=== PATIENT | male | born 1955 | race Caucasian/White ===

== ENCOUNTER 2018-05-18 14:46 | Inpatient (IN) | payer MEDICAID ==
[2018-05-18] MEDS ORDERED: Sodium Chloride 0.9% 1,000 ML IV ONE (14:51)
--- NOTE | 2018-05-18 14:59 | ED Physician Chart ---
ED Chief Complaint/HPI - Patient Information Date Seen:: 05/18/18 Time Seen:: 14:53 Chief Complaint:: Abdominal Pain History of Present Illness:: onset x one day of intermittent, crampy, epigastric pain with nausea; pt denies trauma, LOC, H/As, ALOC, AMS, S/T, neck pain, C/P, SOB, cough, A/V/D/C, fever, chills, or urinary s/s Allergies:: Allergies Allergy/AdvReac Type Severity Reaction Status Date / Time MDX No Known Allergies - Nka Allergy Verified 06/27/14 08:43 [No Known Allergies - Nka] Historian:: Patient, EMS Review:: Nurse's Note Reviewed, Old Chart Reviewed, EMS run form Reviewed ED Review of Systems - Review of Systems General/Constitutional: No fever, No chills, No weight loss, No weakness, No diaphoresis, No edema, No loss of appetite Skin: No skin lesions, No rash, No bruising Head: No headache, No light-headedness Eyes: No loss of vision, No pain, No diplopia ENT: No earache, No nasal drainage, No sore throat, No tinnitus Neck: No neck pain, No swelling, No thyromegaly, No stiffness, No mass noted Cardio Vascular: No chest pain, No palpitations, No PND, No orthopnea, No edema Pulmonary: No SOB, No cough, No sputum, No wheezing GI: Nausea, Vomiting, Diarrhea, Pain, No melena, No hematochezia, No constipation, No hematemesis G/U: No dysuria, No frequency, No hematuria, No nacturia Musculoskeletal: No bone or joint pain, No back pain, No muscle pain Endocrine: No polyuria, No polydipsia Psychiatric: Prior psych history, Depression, Anxiety, No suicidal ideation, No homicidal ideation, No auditory hallucination, No visual hallucination Hematopoietic: No bruising, No lymphadenopathy Allergic/Immuno: No urticaria, No angioedema Neurological: No syncope, No focal symptoms, No weakness, No paresthesia, No headache, No seizure, No dizziness, No confusion, No vertigo ED Past Medical History - Past Medical History Obtainable: Yes Past Medical History: HTN Family History: HTN Social History: Non Smoker, No Alcohol, No Drug Use, Single, Homeless Surgical History: None Psychiatricy History: Depression Medication: Reviewed Family Medical History - Family Member Sister History Unknown: Yes Ethnicity: Living Status: Hx Family Diabetes: Yes ED Physical Exam - Physical Examination General/Constitutional: Awake, Well-developed, well-nourished, Alert, No distress, GCS 15, Non-toxic appearing, Ambulatory Head: Atraumatic Eyes: Lids, conjuctiva normal, PERRL, EOMI Skin: Nl inspection, No rash, No skin lesions, No ecchymosis, Well hydrated, No lymphadenopathy ENMT: External ears, nose nl, TM canals nl, Nasal exam nl, Lips, teeth, gums nl , Oropharynx nl, Tonsils nl Neck: Nontender, Full ROM w/o pain, No JVD, No nuchal rigidity, No bruit, No mass, No stridor Respiratory: Nl effort/Exclusion, Clear to Auscultation, No Wheeze/Rhonchi/Rales Cardio Vascular: RRR, No murmur, gallop, rubs, NL S1 S2, Carotid/Femoral/Distal pulses equal bilaterally GI: No tenderness/rebounding/guarding, No organomegaly, No hernia, Normal BS's, Nondistended, No mass/bruits, No McBurney tenderness, Rectum exam nl : No CVA tenderness Extremities: No tenderness or effusion, Full ROM, normal strength in all extremities, No edema, Normal digits & nails Neuro/Psych: Alert/oriented, DTR's symmetric, Normal sensory exam, Normal motor strength, Judgement/insight normal, Mood normal, Normal gait, No focal deficits Misc: Normal back, No paraspinal tenderness ED Labs/Radiology/EKG Results - Lab Results Comments:: Amylase: 110 - Radiology Results Comments:: NAD - EKG Interpretations EKG Time:: 14:53 Rate & Rhythm: 71; NSR Comments:: non-specific st-t changes ED Septic Shock - . Is Septic Shock (SBP<90, OR Lactate>4 mmol\L) present?: No ED Reassessment (Disposition) - Reassessment Reassessment Condition:: Improved - Diagnosis Diagnosis:: Abdominal pain; Pancreatitis; Hyperbilirubinemia; Hyperlipidemia; Hypercholesterolemia; N/V; AGE Gastritis - Aftercare/Follow up Instructions Aftercare/Follow-Up Instructions:: Counseled pt regarding lab results/diagnosis & need follow up, Counseled pt & family regarding lab results/diagnosis & need follow up - Patient Disposition Discharge/Transfer:: Acute Care w/in this hosp Accepting Physician:: Dr. Bridges Time Called:: 1700 Time Responded:: 17:00 Admitted to:: Telemetry Spoke to:: Dr. Bridges Admitting Medical Physician:: Dr. Bridges Condition at Disposition:: Stable, Improved
[2018-05-18 15:13] LABS: EOSINOPHILE ABSOLUTE 0.1 Th/cmm (0.1-0.4); HEMOGLOBIN 16.3 gm/dL (12-16); MONOCYTE ABSOLUTE 0.5 Th/cmm (0.3-1.0)
[2018-05-18 15:16] LABS: % BASOPHILS 0.7 % (0.0-2.0); % EOSINOPHILS 1.5 % (0.0-5.0); % MONOCYTES 7.2 % (2.0-10.0); % NEUTROPHILS 64.6 % (40.0-80.0); BASOPHILE ABSOLUTE 0.1 Th/cumm (0-0.2); HEMATOCRIT 47.6 % (41.0-60); LYMPHOCYTE ABSOLUTE 1.9 Th/cmm (1.5-3.0); MEAN CELL VOLUME 93.4 fl (80-99); MEAN CORPUSCULAR HGB CONC 34.2 pg (28.0-36.0); MEAN PLATELET VOLUME 7.3 fl; NEUTROPHILE ABSOLUTE 4.8 Th/cmm (1.8-8.0); PLATELET COUNT 234 Th/cmm (150-400); RED BLOOD COUNT 5.09 Mil/cmm (4.30-5.70); RED CELL DISTRIBUTION WIDTH 12.5 % (11.5-20.0); WHITE BLOOD COUNT 7.4 Th/cmm (4.8-10.8)
[2018-05-18 15:22] LABS: INR 0.95 (0.5-1.4); PROTHROMBIN TIME (TEST) 9.9 SECONDS (9.5-11.5)
[2018-05-18 15:31] LABS: ALB/GLOB RATIO 1.5 (1.0-1.8); ALBUMIN 4.7 gm/dL (4.2-5.5); ALKALINE PHOSPHATASE 84 U/L (34-104); AMYLASE SERUM 110 U/L (29-103); ANION GAP 14.6 (7.0-16.0); BILIRUBIN,TOTAL 1.3 mg/dL (0.3-1.0); BUN - UREA NITROGEN 11 mg/dL (7-25); CALCIUM SERUM 10.1 mg/dL (8.6-10.3); CARBON DIOXIDE 23.1 mEq/L (21.0-31.0); CHLORIDE 104 mEq/L (98-107); CHOLESTEROL 222 mg/dL (<200); CREATININE - SERUM 0.8 mg/dL (0.7-1.3); CREATININE KINASE 86 U/L (30-223); GFR AFRICAN-AMERICAN > 60.0 ml/min (>90); GFR NON AFRICAN-AMERICAN > 60.0 ml/min; GLUCOSE 111 mg/dL (70-105); HDL -HIGH DENSITY LIPOPROTEIN 49 mg/dL (23-92); LIPASE 17 U/L (11-82); POTASSIUM SERUM 3.7 mEq/L (3.5-5.1); SGOT 14 U/L (13-39); SGPT/ALT 11 U/L (7-52); SODIUM SERUM 138 mEq/L (136-145); TOTAL PROTEIN,SERUM 7.8 gm/dL (6.0-8.3); TRIGLYCERIDES 186 mg/dL (<150)
[2018-05-18 17:43] LABS: URINE BILIRUBIN NEGATIVE (NEGATIVE); URINE BLOOD NEGATIVE (NEGATIVE); URINE GLUCOSE (UA) NEGATIVE (NEGATIVE); URINE KETONE NEGATIVE (NEGATIVE); URINE LEUKOCYTE ESTERASE NEGATIVE (NEGATIVE); URINE NITRATE NEGATIVE (NEGATIVE); URINE PROTEIN NEGATIVE (NEGATIVE); URINE SOURCE CLEAN C; URINE UROBILINOGEN 0.2 E.U./dL (0.2 - 1.0)
[2018-05-18 17:46] LABS: URINE CLARITY CLEAR (CLEAR); URINE COLOR YELLOW; URINE MICROSCOPIC INDICATED? NO
[2018-05-18] MEDS ORDERED: Morphine Sulfate 2 mg/mL 1mL Syr IV STA (18:46)
[2018-05-18] MEDS ORDERED: Morphine Sulfate 2 mg/mL 1mL Syr ONE (18:50)
[2018-05-18] MEDS: Morphine Sulfate 2 mg/mL 1mL Syr IVP PRN (23:48)
[2018-05-18] MEDS: D5-0.45NS 1,000 ML IV SCH (23:50)
[2018-05-19] MEDS ORDERED: Pneumococcal Vaccine 0.5 mL Vial IM ONE (03:32)
[2018-05-19] MEDS: Morphine Sulfate 2 mg/mL 1mL Syr IVP PRN ×2 (04:14→08:28)
[2018-05-19] MEDS: D5-0.45NS 1,000 ML IV SCH ×2 (06:50→16:00)
[2018-05-19] MEDS ORDERED: Fleet Enema 135 mL RC ONE (08:36)
--- NOTE | 2018-05-19 09:26 | General Progress Note ---
Subjective - Review of Systems Service Date: 05/19/18 Events since last encounter: consult dictated GI eval in progress Objective - Results Result Diagrams: 05/18/18 15:05 05/18/18 15:05 Recent Labs: Laboratory Last Values WBC 7.4 Th/cmm (4.8-10.8) 05/18/18 15:05 RBC 5.09 Mil/cmm (4.30-5.70) 05/18/18 15:05 Hgb 16.3 gm/dL (12-16) 05/18/18 15:05 Hct 47.6 % (41.0-60) 05/18/18 15:05 MCV 93.4 fl (80-99) 05/18/18 15:05 MCH 32.0 pg (26.0-30.0) H 05/18/18 15:05 MCHC Differential 34.2 pg (28.0-36.0) 05/18/18 15:05 RDW 12.5 % (11.5-20.0) 05/18/18 15:05 Plt Count 234 Th/cmm (150-400) 05/18/18 15:05 MPV 7.3 fl 05/18/18 15:05 Neutrophils % 64.6 % (40.0-80.0) 05/18/18 15:05 Lymphocytes % 26.0 % (20.0-50.0) 05/18/18 15:05 Monocytes % 7.2 % (2.0-10.0) 05/18/18 15:05 Eosinophils % 1.5 % (0.0-5.0) 05/18/18 15:05 Basophils % 0.7 % (0.0-2.0) 05/18/18 15:05 PT 9.9 SECONDS (9.5-11.5) 05/18/18 15:05 INR 0.95 (0.5-1.4) 05/18/18 15:05 Sodium 138 mEq/L (136-145) 05/18/18 15:05 Potassium 3.7 mEq/L (3.5-5.1) 05/18/18 15:05 Chloride 104 mEq/L (98-107) 05/18/18 15:05 Carbon Dioxide 23.1 mEq/L (21.0-31.0) 05/18/18 15:05 Anion Gap 14.6 (7.0-16.0) 05/18/18 15:05 BUN 11 mg/dL (7-25) 05/18/18 15:05 Creatinine 0.8 mg/dL (0.7-1.3) 05/18/18 15:05 Est GFR ( Amer) > 60.0 ml/min (>90) 05/18/18 15:05 Est GFR (Non-Af Amer) > 60.0 ml/min 05/18/18 15:05 BUN/Creatinine Ratio 13.8 05/18/18 15:05 Glucose 111 mg/dL (70-105) H 05/18/18 15:05 Calcium 10.1 mg/dL (8.6-10.3) 05/18/18 15:05 Total Bilirubin 1.3 mg/dL (0.3-1.0) H 05/18/18 15:05 AST 14 U/L (13-39) 05/18/18 15:05 ALT 11 U/L (7-52) 05/18/18 15:05 Alkaline Phosphatase 84 U/L (34-104) 05/18/18 15:05 Creatine Kinase 126 U/L (30-223) 05/19/18 03:15 Troponin I < 0.01 ng/mL (0.01-0.05) L 05/19/18 03:15 B-Natriuretic Peptide 16.0 pg/mL (5.0-100.0) 05/18/18 15:05 Total Protein 7.8 gm/dL (6.0-8.3) 05/18/18 15:05 Albumin 4.7 gm/dL (4.2-5.5) 05/18/18 15:05 Globulin 3.1 gm/dL 05/18/18 15:05 Albumin/Globulin Ratio 1.5 (1.0-1.8) 05/18/18 15:05 Triglycerides 186 mg/dL (<150) H 05/18/18 15:05 Cholesterol 222 mg/dL (<200) H 05/18/18 15:05 LDL Cholesterol Direct 148 mg/dL (75-193) 05/18/18 15:05 HDL Cholesterol 49 mg/dL (23-92) 05/18/18 15:05 Amylase 110 U/L (29-103) H 05/18/18 15:05 Lipase 17 U/L (11-82) 05/18/18 15:05 Urine Source CLEAN C 05/18/18 17:36 Urine Color YELLOW 05/18/18 17:36 Urine Clarity CLEAR (CLEAR) 05/18/18 17:36 Urine pH 8.0 (4.6 - 8.0) 05/18/18 17:36 Ur Specific Deary 1.010 (1.005-1.030) 05/18/18 17:36 Urine Protein NEGATIVE mg/dL (NEGATIVE) 05/18/18 17:36 Urine Glucose (UA) NEGATIVE mg/dL (NEGATIVE) 05/18/18 17:36 Urine Ketones NEGATIVE mg/dL (NEGATIVE) 05/18/18 17:36 Urine Blood NEGATIVE (NEGATIVE) 05/18/18 17:36 Urine Nitrate NEGATIVE (NEGATIVE) 05/18/18 17:36 Urine Bilirubin NEGATIVE (NEGATIVE) 05/18/18 17:36 Urine Urobilinogen 0.2 E.U./dL (0.2 - 1.0) 05/18/18 17:36 Ur Leukocyte Esterase NEGATIVE (NEGATIVE) 05/18/18 17:36 Ethyl Alcohol < 10 mg/dL (0-10) 05/19/18 03:15 - Physical Exam Vitals and I&O: Vital Signs Temp 97.1 F 05/19/18 07:40 Pulse 59 05/19/18 07:40 Resp 18 05/19/18 07:40 BP 143/82 05/19/18 07:40 Pulse Ox 96 05/19/18 07:40 Intake & Output 05/18/18 05/19/18 05/19/18 18:59 06:59 18:59 Intake Total 1999 Balance 1999 Weight (lbs) 58.967 kg 58.967 kg Intake: Intake, IV Amount 1999 Other: Weight Source Patient stated Estimated Active Medications: Current Medications Dextrose/Sodium Chloride (D5-0.45ns) 1,000 mls @ 100 mls/hr IV .Q10H FRANCISCO Stop: 07/17/18 19:29 Last Admin: 05/19/18 06:50 Dose: Not Given Morphine Sulfate (Morphine) 2 mg IVP Q4HR PRN PRN Reason: Pain (Severe) Stop: 07/17/18 19:18 Last Admin: 05/19/18 08:28 Dose: 2 mg Pantoprazole Sodium (Protonix) 40 mg IVP DAILY FRANCISCO Stop: 07/18/18 08:59 Last Admin: 05/19/18 08:27 Dose: 40 mg - Procedures Procedures: Procedures Procedure Code Date OTHER GROUP THERAPY 94.44 06/28/14
--- NOTE | 2018-05-19 10:13 | Diagnostic Imaging Report ---
KUB abdominal film HISTORY: Pain There is a nonspecific gas pattern of nondilated bowel. No free intraperitoneal air. IMPRESSION: Nonspecific bowel gas pattern with no acute radiographic abnormalities
--- NOTE | 2018-05-19 10:20 | History & Physical ---
ADMIT DATE: 05/19/2018 SURGICAL CONSULT REFERRING PHYSICIAN: Bismark Bridges M.D. REASON FOR CONSULTATION: Abdominal pain. Thank you for referring this patient to me. HISTORY OF PRESENT ILLNESS: This is a 62-year-old male who apparently is homeless and claims that he is having some psychiatric problems. He claims that he has been in four facilities and this is the fourth one, but he cant identify where he had been. He claims his pain is mid abdominal with some nausea. There is a claim of constipation, but apparently he had some diarrhea. Essentially, this patient's claims are difficult to corroborate as he does not seem to be consistent in his information. LABORATORY STUDIES: Now shows the CBC to be normal. The chemistry shows slight elevation of the bilirubin 1.2, triglycerides high at 186, and cholesterol 222. Amylase slightly elevated to 110. PHYSICAL EXAMINATION: GENERAL: The patient speaks [place], looks very depressed and apprehensive. ABDOMEN: Soft and flat. No mass. Tenderness is claimed on pressure in the mid abdomen. The patient has been seen by Dr. Reddy, GI neuropsychology medical consultant and tests have been ordered. The patient likewise need psych evaluation. We will follow with you. JOB# [id number] FAHEEM
--- NOTE | 2018-05-19 10:28 | Diagnostic Imaging Report ---
Portable chest x-ray History: Pain Allowing for portable technique the heart size is normal. No focal pulmonary parenchymal processes. No hilar or mediastinal abnormalities. Impression: No acute abnormalities.
--- NOTE | 2018-05-19 10:36 | Diagnostic Imaging Report ---
CT scan of the abdomen and pelvis without intravenous contrast History: Pain Total DLP equals 396 CTDI equals 8.1 Axial sections were obtained from the xiphoid process down to the pubic symphysis. The liver demonstrates a normal size and contour. No focal lesions are seen. The spleen appears normal. No abnormalities are seen in the region of the pancreas. The kidneys appear normal bilaterally. The exam of the pelvis demonstrates preservation of normal fat planes. No abnormal soft tissue masses. No abnormal fluid collections. There is rather marked enlargement of the prostate gland. Correlation with laboratory data (PSA) recommended. IMPRESSION: 1. No acute abnormalities 2. Markedly enlarged prostate gland. Correlation with laboratory data (PSA) recommended 3. Atherosclerotic vascular changes Impression: Negative examination
[2018-05-19] MEDS ORDERED: CITALOPRAM HYDROBROMIDE 20 MG PO SCH (11:45)
[2018-05-19] MEDS ORDERED: Non-Formulary Item 1 EA (Lurasidone Hcl [Latuda] 40 MG) PO SCH (11:45)
--- NOTE | 2018-05-19 12:51 | History & Physical ---
ADMIT DATE: 05/19/2018 PATIENT'S IDENTIFICATION: A 62-year-old male. CHIEF COMPLAINT: Abdominal pain. HISTORY OF PRESENT ILLNESS: A 62-year-old Palestinian male who resides on the streets, has a significant psychiatric history as well. According to him, he is going in and out of the hospital. The patient came to the Emergency Room because of the abdominal pain. The patient's abdominal pain is diffuse, associated with some nausea, but no vomiting, no weight loss. The patient stated that he needed to see the doctor, so he presented to the Emergency Room, the patient was extensively evaluated and I was advised to admit this patient considering the patient has significant pain. I was not informed the patient has a psych history as well. PAST MEDICAL HISTORY: Remarkable for questionable hypertension as well as psychiatric history. MEDICATIONS AT HOME: The patient was taking atenolol, Celexa, and Latuda. ALLERGIES: The patient is allergic to not any medication. SOCIAL HISTORY: The patient lives on the [address]. The patient does not smoke, does not drink. FAMILY MEDICAL HISTORY: Unknown. Negative for diabetes, hypertension, kidney disease, liver disease. REVIEW OF SYSTEMS: The patient continues to feel pain on the abdomen along with some multiple nonspecific symptoms, which include abdominal. No fever, chills, cough, chest pain, headache, diplopia, tingling, numbness. All the review of systems I told asking, which all he said yes. PHYSICAL EXAMINATION: GENERAL: The patient is alert, awake, lying in the bed without any acute distress. VITAL SIGNS: Temperature 97.1, pulse 60, respiratory rate 18, blood pressure 143/82. HEENT: Normocephalic, atraumatic. Extraocular muscles are intact. Tongue was pink and coated. Poor dentition noted. NECK: Supple, no JVD. No hepatojugular reflex. No lymphadenopathy, thyromegaly, or carotid bruit. HEART: Both heart sounds are regular. No S3, no S4. CHEST AND LUNGS: Equal in expansion, no expiratory wheezing. ABDOMEN: Soft. Diffuse guarding noted, but no tenderness. Bowel sounds are present. EXTREMITIES: No edema, no cyanosis. NEUROLOGIC: Nonfocal. AVAILABLE DIAGNOSTIC DATA: A CT scan of the abdomen and pelvis was done, which remarkable for no acute abnormality except markedly enlarged prostate gland noted with atherosclerotic vascular changes. The patient's chemistry panel normal. CBC is normal. Total bilirubin 1.3. Troponin was negative. Creatinine kinase was 452, cholesterol was 222. Urinalysis is negative. Alcohol level less than 10. CLINICAL IMPRESSION: 1. Diffuse abdominal pain, etiology needs to determine suspect the patient may be ill etiologies from psychiatric illness. Though, the patient has atherosclerotic disease changes on CAT scan, ischemia is always the possibilities. 2. Psychotic disorder. 3. Questionable hypertension. PLAN: In the view of his abdominal pain, the patient will be admitted. We will keep n.p.o., IV fluid, IV antibiotic. GI and General Surgery consultation and resume psych medication as well and we will follow psychiatrist recommendations as well. Care plan reviewed and discussed with the patient. [facility]# [id number]
--- NOTE | 2018-05-19 13:12 | Diagnostic Imaging Report ---
Abdominal ultrasound HISTORY: Pain The liver exhibits a homogeneous parenchyma. No focal lesions. No discrete intraluminal abnormality seen within the gallbladder. No definite calculi. No biliary dilatation. The pancreas cannot be seen due to bowel gas. An approximate 2.5 cm sonolucent lesion is noted within the upper pole of the right kidney consistent with a cyst. No hydronephrosis. The left kidney appears normal. Spleen is normal in size. A subcentimeter nodular density is noted adjacent to the spleen probably related to an accessory spleen. No other significant retroperitoneal or intra-abdominal abnormalities. IMPRESSION: 1. Right renal cyst 2. No other significant abnormalities (Pancreas cannot be seen due to bowel gas).
--- NOTE | 2018-05-19 19:29 | Consultation ---
DATE OF CONSULTATION: 05/19/2018 INPATIENT GASTROINTESTINAL CONSULTATION CONSULTING PHYSICIAN: Dr. Bridges. REASON FOR CONSULTATION: Abdominal pain. HISTORY OF PRESENT ILLNESS: The patient is a 62-year-old male with history of hypertension and anxiety, comes into the hospital with 2 days of nausea, vomiting and abdominal pain. The patient reports that he is currently homeless and he has began to have severe anxiety several days ago. He thinks that his anxiety is causing him to have issues of abdominal pain, but also back pain and pain in his upper and lower extremities. He thinks that he has vomited several times since the onset of this pain and he has not been tolerating much by mouth. At the current time, the patient feels very anxious, scared, and complains about total body pain more than any specific area. In the ER, he had an evaluation with CT scan that noted an enlarged prostate, but otherwise no acute findings as per the preliminary read. His laboratory evaluation is essentially normal. PAST MEDICAL HISTORY: Anxiety, hypertension. PAST SURGICAL HISTORY: The patient denies any abdominal surgeries. FAMILY HISTORY: Noncontributory. SOCIAL HISTORY: The patient denies using illicit drugs, but he is homeless. ALLERGIES: No known drug allergies. REVIEW OF SYSTEMS: A 12-point review of systems was performed and the patient is negative other than the pertinent positives are mentioned in the history of present illness. CURRENT MEDICATIONS: Include morphine as needed, Protonix daily. PHYSICAL EXAMINATION: VITAL SIGNS: Blood pressure is 143/82, pulse 59 beats per minute, respiratory rate 97.1, oxygenation 96%. GENERAL: The patient is lying flat in bed. He appears highly anxious and is alert and oriented x 3. HEAD, EARS, EYES, NOSE AND THROAT: Normocephalic, atraumatic appearing head. Pupils are equal and reactive to light. Extraocular muscles are intact. Moist mucous membranes. NECK: Supple. No JVD or thyromegaly or lymphadenopathy. CHEST: Clear to auscultation bilaterally. CARDIOVASCULAR: S1, S2 present. Regular rate and rhythm. ABDOMEN: Soft. There is no tenderness to palpation in any specific area, although there is some generalized pain wherever I pressed down deeply. No guarding, no rebound. EXTREMITIES: No pitting edema. Pulses are not present. SKIN: There are no obvious jaundice. LABORATORY DATA: White blood cell count is 7.4, hemoglobin 16.3, platelet count 234. INR 0.9. Sodium 138, BUN 11, creatinine 0.8, total bilirubin 1.3, AST 14, ALT 11, lipase 17. IMAGING: A preliminary CT scan read shows no acute abnormalities and there is no enlarged prostate. IMPRESSION: This is a 62-year-old male, who is homeless with history of hypertension and anxiety, comes into the hospital with generalized body pain, but specifically complains about abdominal pain and back pain. 1. Abdominal pain. 2. Nausea and vomiting. 3. Back pain. 4. High anxiety level. DISCUSSION: At this point, the patient's clinical symptoms are very vague and the differential is broad including such entities as viral or bacterial gastroenteritis or more of a somatoform disorder such as anxiety related abdominal pain. His laboratories and CT scan are essentially normal, which leads against any sort of pancreatitis or colitis that might be causing this. The patient may be suffering some acid reflux or esophagitis and these issues should be treated with the Protonix he is receiving. Peptic ulcer disease is another possibility, although I would have expected the patient to have exhibited an anemia or melena in the setting. Furthermore, we can consider such entities as constipation or obstipation related pain as the patient reports he has not had a bowel movement in several days and we will get a KUB to further assess this. Total bilirubin is mildly elevated, which is likely Gilbert syndrome, but we can get an ultrasound to look at the gallbladder specifically and ensure that there is no evidence of choledocholithiasis. RECOMMENDATIONS: 1. We will order a fleet enema as the patient reports he has not had a bowel movement in several days. 2. We will get a KUB. 3. We will order an abdominal ultrasound as stated above. 4. The patient can be put back on a low fat diet after the ultrasound. 5. Continue the Protonix. 6. Consider psych consultation given the patient is complaining mostly about his anxiety more than other things. 7. If the patient's pain does not get any better with conservative treatment, we can consider endoscopy, although there is no current indication for this. We will continue to follow. Thank you for allowing us to participate in his care. Please call if any further questions. JOB# [id number]
[2018-05-19 19:55] LABS: AMPHETAMINE URINE NEGATIVE (NEGATIVE); BARBITURATES URINE NEGATIVE (NEGATIVE); BENZODIAZEPINES QUAL URINE NEGATIVE (NEGATIVE); CANNABINOID THC NEGATIVE (NEGATIVE); COCAINE METABOLITE QUAL URINE NEGATIVE (NEGATIVE); METHADONE URINE NEGATIVE (NEGATIVE); METHAMPHETAMINES QUAL URINE NEGATIVE (NEGATIVE); OPIATES (MORPHINE) QUAL. URINE POSITIVE (NEGATIVE); PHENCYCLIDINE (PCP) URINE NEGATIVE (NEGATIVE); TRICYCLICS (TCA) QUAL. URINE NEGATIVE (NEGATIVE)
[2018-05-20] MEDS: D5-0.45NS 1,000 ML IV SCH ×2 (03:00→19:03)
--- NOTE | 2018-05-20 07:33 | Consultation ---
DATE OF CONSULTATION: 05/20/2018 PSYCHIATRIC CONSULT THE PATIENT'S AGE: 62. SEX: Male. PHYSICIAN: Dr. Westbrook. CHIEF COMPLAINT: Depression and hallucinations. HISTORY OF PRESENT ILLNESS: The patient is a 62-year-old male, who was admitted to the hospital because of abdominal pain. The patient has been anxious and has been depressed. The patient also has been isolative. The patient has a history of multiple psychiatric hospitalizations for treatment of what seems to be a schizoaffective disorder. The patient said that currently he does not hear voices or see things, but he seems to be suspicious and paranoid. The patient also is homeless and has no place to live. The patient is taking Celexa at this time. PAST PSYCHIATRIC HISTORY: The patient has history of multiple psychiatric hospitalizations for treatment of what seems to be schizoaffective disorder. PAST MEDICAL HISTORY: The patient is admitted with abdominal pain. SOCIAL HISTORY: The patient said that he has 3 children. He is not . He denies alcohol or drug use. ALLERGIES: No known allergies. MENTAL STATUS EXAM: The patient appears slightly older than his stated age. Disheveled. Anxious. Sad affect. In a depressed mood. Thought processes mainly goal directed. The patient denies auditory or visual hallucinations or delusions, but seems to be paranoid. The patient denies any suicidal or homicidal ideations. The patient is alert and oriented to time, place, person, and situation. Intact immediate, recent and remote memories. Poor insight and poor judgment. He seems to be of average intelligence based on his verbal ability. ASSESSMENT: PRIMARY DIAGNOSIS: Schizoaffective disorder, depressed episode, with psychotic features. TREATMENT PLAN: We will monitor his behavior and his condition. We will increase Celexa to 40 mg every day. Also, the patient is not suicidal or homicidal, and he can be treated in lower level of care and he can be discharged from the hospital. Thanks to Dr. Bridges and we will follow up with you. JOB# [id number]
--- NOTE | 2018-05-20 09:32 | GI Progress Note ---
Subjective - Review of Systems Service Date: 05/20/18 Subjective: No longer having abd pain, reports he had a BM Objective - Results Result Diagrams: 05/18/18 15:05 05/18/18 15:05 Recent Labs: Laboratory Last Values WBC 7.4 Th/cmm (4.8-10.8) 05/18/18 15:05 RBC 5.09 Mil/cmm (4.30-5.70) 05/18/18 15:05 Hgb 16.3 gm/dL (12-16) 05/18/18 15:05 Hct 47.6 % (41.0-60) 05/18/18 15:05 MCV 93.4 fl (80-99) 05/18/18 15:05 MCH 32.0 pg (26.0-30.0) H 05/18/18 15:05 MCHC Differential 34.2 pg (28.0-36.0) 05/18/18 15:05 RDW 12.5 % (11.5-20.0) 05/18/18 15:05 Plt Count 234 Th/cmm (150-400) 05/18/18 15:05 MPV 7.3 fl 05/18/18 15:05 Neutrophils % 64.6 % (40.0-80.0) 05/18/18 15:05 Lymphocytes % 26.0 % (20.0-50.0) 05/18/18 15:05 Monocytes % 7.2 % (2.0-10.0) 05/18/18 15:05 Eosinophils % 1.5 % (0.0-5.0) 05/18/18 15:05 Basophils % 0.7 % (0.0-2.0) 05/18/18 15:05 PT 9.9 SECONDS (9.5-11.5) 05/18/18 15:05 INR 0.95 (0.5-1.4) 05/18/18 15:05 Sodium 138 mEq/L (136-145) 05/18/18 15:05 Potassium 3.7 mEq/L (3.5-5.1) 05/18/18 15:05 Chloride 104 mEq/L (98-107) 05/18/18 15:05 Carbon Dioxide 23.1 mEq/L (21.0-31.0) 05/18/18 15:05 Anion Gap 14.6 (7.0-16.0) 05/18/18 15:05 BUN 11 mg/dL (7-25) 05/18/18 15:05 Creatinine 0.8 mg/dL (0.7-1.3) 05/18/18 15:05 Est GFR ( Amer) > 60.0 ml/min (>90) 05/18/18 15:05 Est GFR (Non-Af Amer) > 60.0 ml/min 05/18/18 15:05 BUN/Creatinine Ratio 13.8 05/18/18 15:05 Glucose 111 mg/dL (70-105) H 05/18/18 15:05 Calcium 10.1 mg/dL (8.6-10.3) 05/18/18 15:05 Total Bilirubin 1.3 mg/dL (0.3-1.0) H 05/18/18 15:05 AST 14 U/L (13-39) 05/18/18 15:05 ALT 11 U/L (7-52) 05/18/18 15:05 Alkaline Phosphatase 84 U/L (34-104) 05/18/18 15:05 Creatine Kinase 1182 U/L (30-223) H 05/19/18 19:20 CK-MB (CK-2) 4.7 ng/mL (0.6-6.3) 05/19/18 19:20 Troponin I 0.01 ng/mL (0.01-0.05) 05/19/18 19:20 B-Natriuretic Peptide 16.0 pg/mL (5.0-100.0) 05/18/18 15:05 Total Protein 7.8 gm/dL (6.0-8.3) 05/18/18 15:05 Albumin 4.7 gm/dL (4.2-5.5) 05/18/18 15:05 Globulin 3.1 gm/dL 05/18/18 15:05 Albumin/Globulin Ratio 1.5 (1.0-1.8) 05/18/18 15:05 Triglycerides 186 mg/dL (<150) H 05/18/18 15:05 Cholesterol 222 mg/dL (<200) H 05/18/18 15:05 LDL Cholesterol Direct 148 mg/dL (75-193) 05/18/18 15:05 HDL Cholesterol 49 mg/dL (23-92) 05/18/18 15:05 Amylase 110 U/L (29-103) H 05/18/18 15:05 Lipase 17 U/L (11-82) 05/18/18 15:05 Urine Source CLEAN C 05/18/18 17:36 Urine Color YELLOW 05/18/18 17:36 Urine Clarity CLEAR (CLEAR) 05/18/18 17:36 Urine pH 8.0 (4.6 - 8.0) 05/18/18 17:36 Ur Specific [place] 1.010 (1.005-1.030) 05/18/18 17:36 Urine Protein NEGATIVE mg/dL (NEGATIVE) 05/18/18 17:36 Urine Glucose (UA) NEGATIVE mg/dL (NEGATIVE) 05/18/18 17:36 Urine Ketones NEGATIVE mg/dL (NEGATIVE) 05/18/18 17:36 Urine Blood NEGATIVE (NEGATIVE) 05/18/18 17:36 Urine Nitrate NEGATIVE (NEGATIVE) 05/18/18 17:36 Urine Bilirubin NEGATIVE (NEGATIVE) 05/18/18 17:36 Urine Urobilinogen 0.2 E.U./dL (0.2 - 1.0) 05/18/18 17:36 Ur Leukocyte Esterase NEGATIVE (NEGATIVE) 05/18/18 17:36 Urine Opiates Screen POSITIVE (NEGATIVE) H 05/19/18 19:20 Urine Methadone Screen NEGATIVE (NEGATIVE) 05/19/18 19:20 Ur Barbiturates Screen NEGATIVE (NEGATIVE) 05/19/18 19:20 Ur Tricyclics Screen NEGATIVE (NEGATIVE) 05/19/18 19:20 Ur Phencyclidine Scrn NEGATIVE (NEGATIVE) 05/19/18 19:20 Amphetamines Screen NEGATIVE (NEGATIVE) 05/19/18 19:20 U Methamphetamines Scrn NEGATIVE (NEGATIVE) 05/19/18 19:20 U Benzodiazepines Scrn NEGATIVE (NEGATIVE) 05/19/18 19:20 U Cocaine Metab Screen NEGATIVE (NEGATIVE) 05/19/18 19:20 U Cannabinoids Screen NEGATIVE (NEGATIVE) 05/19/18 19:20 Ethyl Alcohol < 10 mg/dL (0-10) 05/19/18 03:15 - Physical Exam Vitals and I&O: Vital Signs Temp 98.4 F 05/20/18 04:00 Pulse 78 05/20/18 08:41 Resp 18 05/20/18 04:00 BP 136/68 05/20/18 08:41 Pulse Ox 98 05/20/18 04:00 Intake & Output 05/19/18 05/20/18 05/20/18 18:59 06:59 18:59 Intake Total 1000 1000 Balance 1000 1000 Weight (lbs) 58.967 kg Intake: Intake, IV Amount 1000 1000 D5-0.45NS 1,000 ml @ 100 1000 1000 mls/hr IV .Q10H [facility] Rx#: [id number] Other: Weight Source Estimated Active Medications: Current Medications Atenolol (Tenormin) 25 mg PO DAILY [facility] Stop: 07/19/18 08:59 Last Admin: 05/20/18 08:41 Dose: 25 mg Citalopram Hydrobromide (Celexa) 40 mg PO DAILY [facility] Stop: 07/19/18 08:59 Dextrose/Sodium Chloride (D5-0.45ns) 1,000 mls @ 100 mls/hr IV .Q10H [facility] Stop: 07/17/18 19:29 Last Admin: 05/20/18 03:00 Dose: 100 mls/hr Miscellaneous (Lurasidone Hcl [Latuda]) 40 mg PO DAILY [facility] Stop: 07/18/18 11:44 Morphine Sulfate (Morphine) 2 mg IVP Q4HR PRN PRN Reason: Pain (Severe) Stop: 07/17/18 19:18 Last Admin: 05/19/18 08:28 Dose: 2 mg Pantoprazole Sodium (Protonix) 40 mg IVP DAILY [facility] Stop: 07/18/18 08:59 Last Admin: 05/19/18 08:27 Dose: 40 mg General: Alert Neck: Supple Cardiovascular: Regular rate Abdomen: Bowel sounds, Soft, no Tender, no Hepatomegaly, no Splenomegaly, no Distended, no Rebound Skin: no Rash - Procedures Procedures: Procedures Procedure Code Date OTHER GROUP THERAPY 94.44 06/28/14 Assessment/Plan - Assessment Assessment: # Schizophrenia # Abd pain # Nausea Pt's GI symptoms are resolved at this point, and may have had a large component of anxiety as the root cause. The patient is very fearful, and does not want to discuss the prospect of endoscopy. He is less anxious today, and his pain is much better and he has no nausea. Plan: - diet as tolerated - psych f/u - bowel regimen if the pt will allow it - if pain returns, and pt will allow it, we can discuss performing endoscopy GI to see this patient intermittently, please call with any questions
--- NOTE | 2018-05-20 12:17 | General Progress Note ---
Subjective - Review of Systems Service Date: 05/20/18 Events since last encounter: labs normal denies pain will sign off Objective - Results Result Diagrams: 05/18/18 15:05 05/18/18 15:05 Recent Labs: Laboratory Last Values WBC 7.4 Th/cmm (4.8-10.8) 05/18/18 15:05 RBC 5.09 Mil/cmm (4.30-5.70) 05/18/18 15:05 Hgb 16.3 gm/dL (12-16) 05/18/18 15:05 Hct 47.6 % (41.0-60) 05/18/18 15:05 MCV 93.4 fl (80-99) 05/18/18 15:05 MCH 32.0 pg (26.0-30.0) H 05/18/18 15:05 MCHC Differential 34.2 pg (28.0-36.0) 05/18/18 15:05 RDW 12.5 % (11.5-20.0) 05/18/18 15:05 Plt Count 234 Th/cmm (150-400) 05/18/18 15:05 MPV 7.3 fl 05/18/18 15:05 Neutrophils % 64.6 % (40.0-80.0) 05/18/18 15:05 Lymphocytes % 26.0 % (20.0-50.0) 05/18/18 15:05 Monocytes % 7.2 % (2.0-10.0) 05/18/18 15:05 Eosinophils % 1.5 % (0.0-5.0) 05/18/18 15:05 Basophils % 0.7 % (0.0-2.0) 05/18/18 15:05 PT 9.9 SECONDS (9.5-11.5) 05/18/18 15:05 INR 0.95 (0.5-1.4) 05/18/18 15:05 Sodium 138 mEq/L (136-145) 05/18/18 15:05 Potassium 3.7 mEq/L (3.5-5.1) 05/18/18 15:05 Chloride 104 mEq/L (98-107) 05/18/18 15:05 Carbon Dioxide 23.1 mEq/L (21.0-31.0) 05/18/18 15:05 Anion Gap 14.6 (7.0-16.0) 05/18/18 15:05 BUN 11 mg/dL (7-25) 05/18/18 15:05 Creatinine 0.8 mg/dL (0.7-1.3) 05/18/18 15:05 Est GFR ( Amer) > 60.0 ml/min (>90) 05/18/18 15:05 Est GFR (Non-Af Amer) > 60.0 ml/min 05/18/18 15:05 BUN/Creatinine Ratio 13.8 05/18/18 15:05 Glucose 111 mg/dL (70-105) H 05/18/18 15:05 Calcium 10.1 mg/dL (8.6-10.3) 05/18/18 15:05 Total Bilirubin 1.3 mg/dL (0.3-1.0) H 05/18/18 15:05 AST 14 U/L (13-39) 05/18/18 15:05 ALT 11 U/L (7-52) 05/18/18 15:05 Alkaline Phosphatase 84 U/L (34-104) 05/18/18 15:05 Creatine Kinase 1182 U/L (30-223) H 05/19/18 19:20 CK-MB (CK-2) 4.7 ng/mL (0.6-6.3) 05/19/18 19:20 Troponin I 0.01 ng/mL (0.01-0.05) 05/19/18 19:20 B-Natriuretic Peptide 16.0 pg/mL (5.0-100.0) 05/18/18 15:05 Total Protein 7.8 gm/dL (6.0-8.3) 05/18/18 15:05 Albumin 4.7 gm/dL (4.2-5.5) 05/18/18 15:05 Globulin 3.1 gm/dL 05/18/18 15:05 Albumin/Globulin Ratio 1.5 (1.0-1.8) 05/18/18 15:05 Triglycerides 186 mg/dL (<150) H 05/18/18 15:05 Cholesterol 222 mg/dL (<200) H 05/18/18 15:05 LDL Cholesterol Direct 148 mg/dL (75-193) 05/18/18 15:05 HDL Cholesterol 49 mg/dL (23-92) 05/18/18 15:05 Amylase 110 U/L (29-103) H 05/18/18 15:05 Lipase 17 U/L (11-82) 05/18/18 15:05 Urine Source CLEAN C 05/18/18 17:36 Urine Color YELLOW 05/18/18 17:36 Urine Clarity CLEAR (CLEAR) 05/18/18 17:36 Urine pH 8.0 (4.6 - 8.0) 05/18/18 17:36 Ur Specific [place] 1.010 (1.005-1.030) 05/18/18 17:36 Urine Protein NEGATIVE mg/dL (NEGATIVE) 05/18/18 17:36 Urine Glucose (UA) NEGATIVE mg/dL (NEGATIVE) 05/18/18 17:36 Urine Ketones NEGATIVE mg/dL (NEGATIVE) 05/18/18 17:36 Urine Blood NEGATIVE (NEGATIVE) 05/18/18 17:36 Urine Nitrate NEGATIVE (NEGATIVE) 05/18/18 17:36 Urine Bilirubin NEGATIVE (NEGATIVE) 05/18/18 17:36 Urine Urobilinogen 0.2 E.U./dL (0.2 - 1.0) 05/18/18 17:36 Ur Leukocyte Esterase NEGATIVE (NEGATIVE) 05/18/18 17:36 Urine Opiates Screen POSITIVE (NEGATIVE) H 05/19/18 19:20 Urine Methadone Screen NEGATIVE (NEGATIVE) 05/19/18 19:20 Ur Barbiturates Screen NEGATIVE (NEGATIVE) 05/19/18 19:20 Ur Tricyclics Screen NEGATIVE (NEGATIVE) 05/19/18 19:20 Ur Phencyclidine Scrn NEGATIVE (NEGATIVE) 05/19/18 19:20 Amphetamines Screen NEGATIVE (NEGATIVE) 05/19/18 19:20 U Methamphetamines Scrn NEGATIVE (NEGATIVE) 05/19/18 19:20 U Benzodiazepines Scrn NEGATIVE (NEGATIVE) 05/19/18 19:20 U Cocaine Metab Screen NEGATIVE (NEGATIVE) 05/19/18 19:20 U Cannabinoids Screen NEGATIVE (NEGATIVE) 05/19/18 19:20 Ethyl Alcohol < 10 mg/dL (0-10) 05/19/18 03:15 - Physical Exam Vitals and I&O: Vital Signs Temp 98.4 F 05/20/18 04:00 Pulse 78 05/20/18 08:41 Resp 20 05/20/18 08:00 BP 136/68 05/20/18 08:41 Pulse Ox 98 05/20/18 04:00 Intake & Output 05/19/18 05/20/18 05/20/18 18:59 06:59 18:59 Intake Total 1000 1000 Balance 1000 1000 Weight (lbs) 58.967 kg Intake: Intake, IV Amount 1000 1000 D5-0.45NS 1,000 ml @ 100 1000 1000 mls/hr IV .Q10H [facility] Rx#: [id number] Other: Weight Source Estimated Active Medications: Current Medications Atenolol (Tenormin) 25 mg PO DAILY [facility] Stop: 07/19/18 08:59 Last Admin: 05/20/18 08:41 Dose: 25 mg Citalopram Hydrobromide (Celexa) 40 mg PO DAILY [facility] Stop: 07/19/18 08:59 Last Admin: 05/20/18 09:00 Dose: 40 mg Dextrose/Sodium Chloride (D5-0.45ns) 1,000 mls @ 100 mls/hr IV .Q10H [facility] Stop: 07/17/18 19:29 Last Admin: 05/20/18 03:00 Dose: 100 mls/hr Miscellaneous (Lurasidone Hcl [Latuda]) 40 mg PO DAILY [facility] Stop: 07/18/18 11:44 Morphine Sulfate (Morphine) 2 mg IVP Q4HR PRN PRN Reason: Pain (Severe) Stop: 07/17/18 19:18 Last Admin: 05/19/18 08:28 Dose: 2 mg Pantoprazole Sodium (Protonix) 40 mg IVP DAILY [facility] Stop: 07/18/18 08:59 Last Admin: 05/20/18 09:00 Dose: 40 mg General: Alert Neck: Supple Cardiovascular: Regular rate Abdomen: Bowel sounds, Soft, no Tender, no Hepatomegaly, no Splenomegaly, no Distended, no Rebound Skin: no Rash - Procedures Procedures: Procedures Procedure Code Date OTHER GROUP THERAPY 94.44 06/28/14
[2018-05-21] MEDS: D5-0.45NS 1,000 ML IV SCH ×2 (03:39→09:04)
--- NOTE | 2018-05-21 09:28 | Progress Notes ---
DATE: IDENTIFICATION: A 62-year-old male, patient seen and examined. The patient has no new complaint. The patient is seen by food production associate as well as the psychiatrist. According to the patient, psychologist and psychiatrist as well as the patient's family suggested to the psych consult. According to social welfare clerk, Psych consult has been requested from Dr. Westbrook as well. The patient currently denies any chest pain, shortness of breath or palpitation. His abdominal pain is better. PHYSICAL EXAMINATION: VITAL SIGNS: See nurse's note. HEENT: No facial asymmetry. NECK: Supple, no JVD. HEART: Regular. CHEST AND LUNGS: Equal in expansion. No expiratory wheezing. ABDOMEN: Soft. No guarding. No rigidity. Bowel sounds present. No palpable mass. EXTREMITIES: No edema. CLINICAL IMPRESSION: 1. Abdominal pain with negative workup. 2. Most likely Psychotic disorder exacerbation. 3. Hypertension. PLAN: Followup and follow the recommendations. Start feeding the patient with p.o. diet, monitor his vital signs and transfer him to the med-surg level. Continue to follow [employer] operations consultant recommendations as well. Care plan has been reviewed and discussed with the staff. JOB# [id number]
[2018-05-21] MEDS ORDERED: Haloperidol Lactate 5 mg/mL 1mL Vial IM ONE (14:42)
--- NOTE | 2018-05-21 20:06 | Progress Notes ---
DATE: 05/21/2018 SUBJECTIVE: The patient seen and examined. The patient has more psych issues than medical issue at this time. The patient has been seen by psychiatrist. The patient thinks he is depressed. He has no plan to kill himself. PHYSICAL EXAMINATION: VITAL SIGNS: Temperature 98, pulse 77, respiratory rate 18, blood pressure 137/73. HEENT: Poor dentition. NECK: Supple. HEART: Regular. CHEST AND LUNG: Equal in expansion, no expiratory wheezing. ABDOMEN: Soft. EXTREMITIES: No edema. NEUROLOGIC: Nonfocal. CLINICAL IMPRESSION: 1. Elevated CPK secondary to rhabdomyolysis. 2. Psychotic disorder exacerbation. 3. Opiate screen positive on urine. PLAN: 1. IV fluid. 2. Antihypertensive medicine on p.r.n. 3. Psych medication and psych followup. 4. Symptoms management. 5. Care plan reviewed and discussed. JOB# [id number]
--- NOTE | 2018-05-22 00:12 | Progress Notes ---
DATE: 05/21/2018 SUBJECTIVE: Case was discussed with staff of the patient, reviewed records. The patient was seen by Dr. Westbrook because of depression and today he was "seen on emergency basis." The patient was suicidal. He was saying that he would like to harm himself. His family was there and they said that he has been hospitalized many times in the last month and that they keep sending him back home and he is still very depressed. He is currently on Celexa 40 mg a day and I will be adding Abilify 5 mg a day. We have to give him emergency medication. He was very agitated and anxious. We are going to also put him on a hold to transfer to a psych unit when medically cleared and think he will be kept on 1:1 suicide precautions. Side effects discussed. Thank you very much for allowing me to participate in the care of this most interesting gentleman. JOB# [id number]
[2018-05-22 12:38] LABS: % BASOPHILS 0.8 % (0.0-2.0); % LYMPHOCYTES 31.2 % (20.0-50.0); % MONOCYTES 10.1 % (2.0-10.0); % NEUTROPHILS 56.9 % (40.0-80.0); BASOPHILE ABSOLUTE 0.1 Th/cumm (0-0.2); EOSINOPHILE ABSOLUTE 0.1 Th/cmm (0.1-0.4); HEMATOCRIT 47.3 % (41.0-60); HEMOGLOBIN 15.9 gm/dL (12-16); LYMPHOCYTE ABSOLUTE 2.5 Th/cmm (1.5-3.0); MEAN CELL VOLUME 93.7 fl (80-99); MEAN CORPUSCULAR HEMOGLOBIN 31.5 pg (26.0-30.0); MEAN CORPUSCULAR HGB CONC 33.6 pg (28.0-36.0); MEAN PLATELET VOLUME 7.7 fl; MONOCYTE ABSOLUTE 0.8 Th/cmm (0.3-1.0); NEUTROPHILE ABSOLUTE 4.4 Th/cmm (1.8-8.0); PLATELET COUNT 230 Th/cmm (150-400); RED BLOOD COUNT 5.05 Mil/cmm (4.30-5.70); RED CELL DISTRIBUTION WIDTH 12.6 % (11.5-20.0); WHITE BLOOD COUNT 7.9 Th/cmm (4.8-10.8)
[2018-05-22 12:48] LABS: ALB/GLOB RATIO 1.6 (1.0-1.8); ALBUMIN 4.2 gm/dL (4.2-5.5); ALKALINE PHOSPHATASE 76 U/L (34-104); ANION GAP 11.6 (7.0-16.0); BILIRUBIN,TOTAL 1.3 mg/dL (0.3-1.0); BUN - UREA NITROGEN 18 mg/dL (7-25); CALCIUM SERUM 9.4 mg/dL (8.6-10.3); CARBON DIOXIDE 25.5 mEq/L (21.0-31.0); CHLORIDE 103 mEq/L (98-107); CREATININE - SERUM 0.9 mg/dL (0.7-1.3); CREATININE KINASE 400 U/L (30-223); GFR AFRICAN-AMERICAN > 60.0 ml/min (>90); GFR NON AFRICAN-AMERICAN > 60.0 ml/min; GLUCOSE 97 mg/dL (70-105); POTASSIUM SERUM 4.1 mEq/L (3.5-5.1); SGOT 22 U/L (13-39); SGPT/ALT 16 U/L (7-52); SODIUM SERUM 136 mEq/L (136-145); TOTAL PROTEIN,SERUM 6.8 gm/dL (6.0-8.3)
--- NOTE | 2018-05-22 15:50 | Progress Notes ---
DATE: 05/22/2018 IDENTIFICATION: A 62-year-old male. SUBJECTIVE: The patient is currently on Abilify. The patient did require symptomatic therapy with Ativan. The patient is currently sleeping comfortably. PHYSICAL EXAMINATION: VITAL SIGNS: Temperature 97.2, pulse 64, respiratory rate 18, blood pressure 140/62. HEENT: No facial asymmetry. NECK: Supple, no JVD. HEART: Regular. CHEST AND LUNGS: Equal in expansion, expiratory wheezing. ABDOMEN: Soft. EXTREMITIES: No edema. CLINICAL IMPRESSION: 1. Psychotic disorder exacerbation. 2. Elevated CPK on 05/19/2018. 3. Hypertension. 4. Abdominal pain, resolved. PLAN: Check CPK, CBC, CMP today. Continue IV fluids. Psych medication. Monitor blood pressure and behavior. Follow oim consultant's recommendations. Care plan reviewed and discussed. JOB# [id number]
--- NOTE | 2018-05-22 22:17 | Progress Notes ---
DATE: 05/22/2018 Case was discussed with staff of the patient, reviewed records. The patient continues to be agitated, continues to be irritable, continues to have poor insight. His family was concerned about him because of his multiple admissions last month at least 4 times. He wants to go to sleep and never wake up, so I put him on a hold yesterday because of that today, he is a bit calmer, slept better, and eating better. I added Abilify to his medication yesterday to help calm him down 5 mg daily. He is on citalopram 40 mg a day with no side effects, no sedation, no nausea, no extrapyramidal symptoms. Thank you very much for allowing me to participate in the care of this most interesting gentleman. Dr. Westbrook will follow with him. JOB# [id number]
--- NOTE | 2018-05-23 08:59 | Progress Notes ---
DATE: 05/23/2018 SUBJECTIVE: Chart reviewed and the patient interviewed. Also, discussed the patient's condition with the staff and reviewed records and labs. The patient is still in a depressed mood and anxious. The patient also is still withdrawn and . Also seems to be preoccupied. Denies any side effects of medications. He still seems to be in a depressed mood but denies any thoughts of suicide. ASSESSMENT: The patient is still depressed. TREATMENT PLAN: Continue to monitor his behavior and his condition closely. Also, the patient is homeless and will need placement. JOB# [id number]
--- NOTE | 2018-05-23 11:00 | Progress Notes ---
DATE: 05/23/2018 PATIENT'S ID: A 62-year-old male. SUBJECTIVE: The patient seen and examined. The patient's room had switched to 29 B. The patient is cooperative, still requires significant assistance. PHYSICAL EXAMINATION: VITAL SIGNS: On today's exam, temperature 97.9, pulse is 60, respiratory rate 18, blood pressure 122/68. HEENT: No facial asymmetry. Poor dentition noted. NECK: Supple, no JVD. HEART: Regular. CHEST AND LUNGS: Equal in expansion, no expiratory wheezing. ABDOMEN: Soft. No guarding, rigidity. Bowel sounds are present. No palpable mass. EXTREMITIES: No edema. CLINICAL IMPRESSION: 1. Rhabdomyolysis, improving. 2. Hypertension. 3. Psychiatric disorder exacerbation. 4. Abdominal pain, resolved. PLAN: 1. Psychotropic medication. 2. Antidepression. 3. IV fluid. 4. Monitor blood pressure. 5. Symptoms management. 6. General nursing care. 7. Discharge planning after psychiatrist clearance. [facility]# [id number]
--- NOTE | 2018-05-24 22:04 | Progress Notes ---
DATE: 05/24/2018 SUBJECTIVE: Chart reviewed and the patient interviewed. Also, discussed the patient's condition with the staff and reviewed records and labs. The patient is still depressed, but his affect is brighter. The patient is less irritable and less agitated. He also is cooperative with his treatment. The patient is agreeable to continue his treatment as an outpatient. He also has continued to cooperate with regards to his discharge plans and to treatment options. ASSESSMENT: The patient is not suicidal or homicidal, and the patient can be discharged to correction or to any placement that will accept him and outpatient treatment and followup and continue as an outpatient. [facility]# [id number]
--- NOTE | 2018-05-25 02:06 | Progress Notes ---
DATE: 05/24/2018 SUBJECTIVE: The patient seen and examined. The patient lying in the bed. The patient is comfortable. The patient denies any new complaint. The patient tells me that his depression is a little better, though the patient still requires 1:1 sitter. Currently followed by the psychiatrist. PHYSICAL EXAMINATION: VITAL SIGNS: Temperature 98, pulse is 60, respiratory rate 18, and blood pressure 125/70. HEENT: No facial asymmetry. Poor dentition noted. NECK: Supple, no JVD. HEART: Regular, no murmur. CHEST: Lung equal in expansion, no expiratory wheezing. ABDOMEN: Soft. EXTREMITIES: No edema. NEUROLOGIC: Nonfocal. CLINICAL IMPRESSION: 1. Psychotic disorder exacerbation. 2. History of hypertension, remained normotensive. 3. Rhabdomyolysis, resolving. 4. Degenerative joint disease. 5. High risk for fall. PLAN: Psychotic evaluation and management deferred to psychiatrist. Continue current medicine as prescribed. Once the patient is cleared by the psychiatrist. The patient will be discharged to home as well. JOB# [id number]
--- NOTE | 2018-05-25 16:20 | Progress Notes ---
DATE: 05/25/2018 SUBJECTIVE: The patient seen and examined. The patient is lying in the bed. The patient is accepted to psych facility, but the patient is still here. Discussed with nursing staff about the stable for discharge to psych facility. OBJECTIVE: VITAL SIGNS: Temperature 97.5, pulse is 74, respiratory rate 18, and blood pressure 120/70. HEENT: No facial asymmetry. NECK: Supple, no JVD. HEART: Regular. CHEST AND LUNGS: Equal in expansion, no expiratory wheezing. ABDOMEN: Soft, no guarding, no rigidity. Bowel sounds present. No palpable mass. EXTREMITIES: No edema. NEUROLOGIC: Nonfocal. CLINICAL IMPRESSION: 1. Psychotic disorder exacerbation. 2. Rhabdomyolysis, resolved. 3. Degenerative joint disease. 4. Hypertension by history. PLAN: 1. Stable for transfer to psych facility. 2. Continue current medicine as prescribed. 3. Increase activity. 4. Care plan reviewed and discussed with staff. JOB# [id number]
--- NOTE | 2018-05-28 07:08 | Progress Notes ---
DATE: 05/25/2018 SUBJECTIVE: Chart reviewed and the patient interviewed. Also, discussed the patient's condition with the staff and reviewed records and labs. The patient remains in a depressed mood and anxious. The patient also is still feeling hopeless and helpless especially that he has no place to go. Also, has intermittent thoughts of suicide. Otherwise, the patient is compliant with taking medications with no side effects of medications. ASSESSMENT: The patient is still depressed and is still high risk for suicide. TREATMENT PLAN: We will continue monitoring behavior. Also, we will place the patient on 5250 hold. Also, we will work on trying to find psychiatric unit for the patient's treatment for his depression. JOB# [id number]
== END 2018-05-25 22:09 | disposition short-term general hospital (02) | DRG 241 ==
LOC: ER 14:46 → TELE 19:55 → MSI 05-21 16:28 → TELE 05-22 17:36 → MSI 05-22 19:45
PROVIDERS: ADMIT Internal Medicine; ATTEND Internal Medicine
DX: K29.70 Gastritis, unspecified, without bleeding (principal); K85.90 Acute pancreatitis without necrosis or infection, unspecified; M62.82 Rhabdomyolysis; F25.1 Schizoaffective disorder, depressive type; K52.9 Noninfective gastroenteritis and colitis, unspecified; F41.9 Anxiety disorder, unspecified; M54.9 Dorsalgia, unspecified; I10 Essential (primary) hypertension; E78.5 Hyperlipidemia, unspecified; E78.00 Pure hypercholesterolemia, unspecified; E80.6 Other disorders of bilirubin metabolism; N40.0 Benign prostatic hyperplasia without lower urinary tract symptoms; F29 Unspecified psychosis not due to a substance or known physiological condition; F23 Brief psychotic disorder; M19.90 Unspecified osteoarthritis, unspecified site; Z91.81 History of falling; Z59.0 Homelessness; Z83.3 Family history of diabetes mellitus; Z82.49 Family history of ischemic heart disease and other diseases of the circulatory system
CPT/HCPCS: 36415-UA; 71045-TC; 74000-TC; 76700-TC; 80053-TC; 80061-TC; 80307; 80320-TC; 81003-TC; 82150-TC; 82550-TC; 82553; 83690-TC; 83880-TC; 84484-TC; 85025-TC; 85610-TC; 93005; 94760; 96375; 96376; C9113; J1200; J1630; J2060; J2270; J2405; J7030; Z7610

== ENCOUNTER 2018-07-26 14:38 | Inpatient (IN) | payer MEDICAID ==
[2018-07-26 15:39] LABS: % BASOPHILS 0.8 % (0.0-2.0); % EOSINOPHILS 1.9 % (0.0-5.0); % LYMPHOCYTES 30.6 % (20.0-50.0); % MONOCYTES 8.8 % (2.0-10.0); % NEUTROPHILS 57.9 % (40.0-80.0); EOSINOPHILE ABSOLUTE 0.1 Th/cmm (0.1-0.4); HEMATOCRIT 44.4 % (41.0-60); LYMPHOCYTE ABSOLUTE 1.8 Th/cmm (1.5-3.0); MEAN CELL VOLUME 93.2 fl (80-99); MEAN CORPUSCULAR HEMOGLOBIN 31.4 pg (26.0-30.0); MEAN CORPUSCULAR HGB CONC 33.7 pg (28.0-36.0); MEAN PLATELET VOLUME 7.1 fl; MONOCYTE ABSOLUTE 0.5 Th/cmm (0.3-1.0); NEUTROPHILE ABSOLUTE 3.6 Th/cmm (1.8-8.0); PLATELET COUNT 228 Th/cmm (150-400); RED BLOOD COUNT 4.77 Mil/cmm (4.30-5.70)
[2018-07-26 15:40] LABS: URINE SOURCE CLEAN C
[2018-07-26 15:44] LABS: URINE BILIRUBIN NEGATIVE (NEGATIVE); URINE BLOOD NEGATIVE (NEGATIVE); URINE GLUCOSE (UA) 100 mg/dL (NEGATIVE); URINE KETONE NEGATIVE (NEGATIVE); URINE LEUKOCYTE ESTERASE NEGATIVE (NEGATIVE); URINE NITRATE NEGATIVE (NEGATIVE); URINE PROTEIN NEGATIVE (NEGATIVE); URINE UROBILINOGEN 0.2 E.U./dL (0.2 - 1.0)
[2018-07-26] MEDS ORDERED: Sodium Chloride 0.9% 1,000 ML IV ONE (15:52)
[2018-07-26 16:00] LABS: ALB/GLOB RATIO 1.5 (1.0-1.8); ALBUMIN 4.8 gm/dL (4.2-5.5); ALKALINE PHOSPHATASE 86 U/L (34-104); ANION GAP 13.1 (7.0-16.0); BILIRUBIN,TOTAL 1.5 mg/dL (0.3-1.0); BUN - UREA NITROGEN 14 mg/dL (7-25); CALCIUM SERUM 9.8 mg/dL (8.6-10.3); CARBON DIOXIDE 24.5 mEq/L (21.0-31.0); CHLORIDE 102 mEq/L (98-107); CREATININE - SERUM 0.7 mg/dL (0.7-1.3); CREATININE KINASE 119 U/L (30-223); GFR AFRICAN-AMERICAN > 60.0 ml/min (>90); GFR NON AFRICAN-AMERICAN > 60.0 ml/min; GLUCOSE 129 mg/dL (70-105); POTASSIUM SERUM 3.6 mEq/L (3.5-5.1); SGOT 41 U/L (13-39); SGPT/ALT 55 U/L (7-52); SODIUM SERUM 136 mEq/L (136-145)
[2018-07-26 16:01] LABS: TROP I 0.01 ng/mL (0.01-0.05)
[2018-07-26 16:03] LABS: INR 1.03 (0.5-1.4); PROTHROMBIN TIME (TEST) 10.7 SECONDS (9.5-11.5)
--- NOTE | 2018-07-26 16:04 | ED Physician Chart ---
ED Chief Complaint/HPI - Patient Information Date Seen:: 07/26/18 Time Seen:: 14:50 Chief Complaint:: Poor Oral Intake History of Present Illness:: onset x one week poor oral intake, epigastric pain, Chest Pains, weakness, and dizziness; no report of trauma, LOC, ALOC, AMS, H/As, S/T, SIs, neck pain, SOB, Abd. Pain, A/N/V/D/C, fever, chills, or urinary s/s Allergies:: Allergies Allergy/AdvReac Type Severity Reaction Status Date / Time No Known Allergies Allergy Verified 05/18/18 15:12 Vitals:: Vital Signs - 8 hr 07/26/18 14:51 Temp 97.2 F HR 72 RR 16 BP 131/84 O2 Sat % 98 Historian:: Patient Review:: Nurse's Note Reviewed ED Review of Systems - Review of Systems General/Constitutional: No fever, No chills, No weight loss, No weakness, No diaphoresis, No edema, No loss of appetite Skin: No skin lesions, No rash, No bruising Head: No headache, No light-headedness Eyes: No loss of vision, No pain, No diplopia ENT: No earache, No nasal drainage, No sore throat, No tinnitus Neck: No neck pain, No swelling, No thyromegaly, No stiffness, No mass noted Cardio Vascular: No chest pain, No palpitations, No PND, No orthopnea, No edema Pulmonary: No SOB, No cough, No sputum, No wheezing GI: No nausea, No vomiting, No diarrhea, No pain, No melena, No hematochezia, No constipation, No hematemesis G/U: No dysuria, No frequency, No hematuria, No nacturia Musculoskeletal: No bone or joint pain, No back pain, No muscle pain Endocrine: No polyuria, No polydipsia Psychiatric: Prior psych history, Depression, No anxiety, No suicidal ideation, No homicidal ideation, No auditory hallucination, No visual hallucination Hematopoietic: No bruising, No lymphadenopathy Allergic/Immuno: No urticaria, No angioedema Neurological: No syncope, No focal symptoms, No weakness, No paresthesia, No headache, No seizure, No dizziness, No confusion, No vertigo ED Past Medical History - Past Medical History Obtainable: Yes Past Medical History: No significant medical hx Family History: HTN Social History: Non Smoker, No Alcohol, No Drug Use, Single, Care Facility Surgical History: None Psychiatricy History: Depression Medication: Reviewed Family Medical History - Family Member Sister History Unknown: Yes Ethnicity: Living Status: Hx Family Diabetes: Yes ED Physical Exam - Physical Examination General/Constitutional: Awake, Well-developed, well-nourished, Alert, No distress, GCS 15, Non-toxic appearing, Ambulatory Head: Atraumatic Eyes: Lids, conjuctiva normal, PERRL, EOMI Skin: Nl inspection, No rash, No skin lesions, No ecchymosis, Well hydrated, No lymphadenopathy ENMT: External ears, nose nl, TM canals nl, Nasal exam nl, Lips, teeth, gums nl , Oropharynx nl, Tonsils nl Neck: Nontender, Full ROM w/o pain, No JVD, No nuchal rigidity, No bruit, No mass, No stridor Respiratory: Nl effort/Exclusion, Clear to Auscultation, No Wheeze/Rhonchi/Rales Cardio Vascular: RRR, No murmur, gallop, rubs, NL S1 S2, Carotid/Femoral/Distal pulses equal bilaterally GI: No tenderness/rebounding/guarding, No organomegaly, No hernia, Normal BS's, Nondistended, No mass/bruits, No McBurney tenderness : No CVA tenderness Extremities: No tenderness or effusion, Full ROM, normal strength in all extremities, No edema, Normal digits & nails Neuro/Psych: Alert/oriented, DTR's symmetric, Normal sensory exam, Normal motor strength, Judgement/insight normal, Mood normal, Normal gait, No focal deficits Misc: Normal back, No paraspinal tenderness ED Labs/Radiology/EKG Results - Lab Results Results: Laboratory Tests 07/26/18 15:30 WBC 6.0 RBC 4.77 Hgb 15.0 Hct 44.4 MCV 93.2 MCH 31.4 H MCHC Differential 33.7 RDW 13.0 Plt Count 228 MPV 7.1 Neutrophils % 57.9 Lymphocytes % 30.6 Monocytes % 8.8 Eosinophils % 1.9 Basophils % 0.8 Comments:: Reviewed - Radiology Results Comments:: NAD - EKG Interpretations EKG Time:: 15:22 Rate & Rhythm: 70; NSR Comments:: non-specific st-t changes ED Septic Shock - . Is Septic Shock (SBP<90, OR Lactate>4 mmol\L) present?: No - <6hrs of presentation: Vital Signs: Vital Signs - 8 hr 07/26/18 14:51 Temp 97.2 F HR 72 RR 16 BP 131/84 O2 Sat % 98 ED Reassessment (Disposition) - Reassessment Reassessment Condition:: Improved - Diagnosis Diagnosis:: Poor Oral Intake; Weakness; Dizziness; Chest Pain; Angina Pectoris; Vertigo; TIA ; Dehydration - Aftercare/Follow up Instructions Aftercare/Follow-Up Instructions:: Counseled pt regarding lab results/diagnosis & need follow up, Counseled pt & family regarding lab results/diagnosis & need follow up - Patient Disposition Discharge/Transfer:: Acute Care w/in this hosp Accepting Physician:: Dr. Mak Time Called:: [id number] Time Responded:: 16:45 Admitted to:: Telemetry Spoke to:: Dr. Mak Admitting Medical Physician:: Dr. Mak Condition at Disposition:: Stable, Improved
[2018-07-26 16:05] LABS: URINE CLARITY CLEAR (CLEAR); URINE COLOR YELLOW; URINE MICROSCOPIC INDICATED? YES
[2018-07-26 16:07] LABS: URINE BACTERIA FEW /hpf (NONE SEEN); URINE EPITHELIAL CELLS MODERATE /lpf (FEW); URINE RBC 0-2 /hpf (0-5)
[2018-07-26 16:31] LABS: CHOLESTEROL 229 mg/dL (<200); HDL -HIGH DENSITY LIPOPROTEIN 48 mg/dL (23-92); TRIGLYCERIDES 175 mg/dL (<150)
[2018-07-26 16:32] LABS: AMYLASE SERUM 124 U/L (29-103); LIPASE 34 U/L (11-82)
[2018-07-26 16:42] LABS: DDIMER QUANT 798 ng/mL (100-400)
[2018-07-26] MEDS ORDERED: Aspirin 81mg Chewable Tab PO STA (16:53)
[2018-07-26] MEDS ORDERED: IOHEXOL 350mgI/mL 100mL Bottle IVP ONE (17:00)
[2018-07-26] MEDS ORDERED: Aspirin 81mg Chewable Tab ONE (17:12)
[2018-07-26] MEDS ORDERED: Morphine Sulfate 2 mg/mL 1mL Syr IVP PRN ×2 (19:02→19:05)
[2018-07-26] MEDS ORDERED: Albuterol Nebulizer 2.5mg/3mL HHN PRN (19:05)
[2018-07-26] MEDS ORDERED: guaiFENesin 200 MG/10 ML UDC PO PRN (19:05)
[2018-07-26] MEDS ORDERED: Ipratropium Neb 0.5 mg/2.5 mL UD HHN PRN (19:05)
[2018-07-26] MEDS: Atorvastatin Calcium 10 MG TAB PO SCH (21:09)
[2018-07-26] MEDS: D5-0.45NS 1,000 ML IV SCH (22:24)
[2018-07-27 01:31] VITALS: BP 140/75
--- NOTE | 2018-07-27 08:33 | Diagnostic Imaging Report ---
CT pulmonary angiogram with intravenous contrast History: Pulmonary embolism Total DLP equals 274 CTDI equals 7.1 Following administration of intravenous contrast, axial sections were obtained from a level above the clavicles down to a level below the diaphragm. The exam demonstrates normal opacification of the main right and left pulmonary arteries. No intraluminal lesions are seen. Specifically, no evidence of pulmonary embolism. There is evidence of basilar atelectasis. There is preservation of normal fat planes throughout the mediastinum. No lymphadenopathy is seen. No abnormal focal pulmonary parenchymal masses or nodules are seen. No pleural effusions. Liver parenchyma demonstrates fatty infiltration throughout. Impression: No evidence of pulmonary emboli. Basilar atelectasis. Fatty infiltration liver parenchyma.
--- NOTE | 2018-07-27 08:33 | Diagnostic Imaging Report ---
Portable chest x-ray Time: 1632 History: Chest pain Allowing for portable technique the heart size is normal. No focal pulmonary parenchymal processes. No hilar or mediastinal abnormalities. Impression: No acute abnormalities.
--- NOTE | 2018-07-27 08:40 | Diagnostic Imaging Report ---
Head CT without intravenous contrast Indication: Dizziness Comparison: None Technique: Axial images were obtained from the vertex to the skull base without IV contrast. Coronal reconstructions were made. Total DLP: 645, CTDI37 FINDINGS: Images of the brain obtained without contrast demonstrate no acute hemorrhage. No mass lesions identified. The ventricles and basal cisterns are patent. The koroma-white matter differentiation is preserved. There is no mass effect or midline shift. No skull fractures identified. No soft tissue swelling. The paranasal sinuses are clear. Atherosclerosis is noted. IMPRESSION: No acute intracranial abnormality.
[2018-07-27] MEDS ORDERED: Non-Formulary Item 1 EA (Lurasidone Hcl [Latuda] 40 MG) PO SCH (09:00)
[2018-07-27] MEDS ORDERED: CITALOPRAM HYDROBROMIDE 20 MG PO SCH (09:00)
[2018-07-27] MEDS ORDERED: Pneumococcal Vaccine 0.5 mL Vial IM ONE (10:00)
[2018-07-27] MEDS ORDERED: Influenza Vaccine (5 yr & older) 0.5 ml Syr IM ONE (10:36)
[2018-07-27] MEDS: D5-0.45NS 1,000 ML IV SCH (12:23)
--- NOTE | 2018-07-27 13:02 | Internal Medicine Prog Note ---
Internal Medicine Subjective - Subjective Service Date: 07/27/18 ([id number]) Internal Medicine Objective - Results Result Diagrams: 07/26/18 15:30 07/26/18 15:30 Recent Labs: Laboratory Last Values WBC 6.0 Th/cmm (4.8-10.8) 07/26/18 15:30 RBC 4.77 Mil/cmm (4.30-5.70) 07/26/18 15:30 Hgb 15.0 gm/dL (12-16) 07/26/18 15:30 Hct 44.4 % (41.0-60) 07/26/18 15:30 MCV 93.2 fl (80-99) 07/26/18 15:30 MCH 31.4 pg (26.0-30.0) H 07/26/18 15:30 MCHC Differential 33.7 pg (28.0-36.0) 07/26/18 15:30 RDW 13.0 % (11.5-20.0) 07/26/18 15:30 Plt Count 228 Th/cmm (150-400) 07/26/18 15:30 MPV 7.1 fl 07/26/18 15:30 Neutrophils % 57.9 % (40.0-80.0) 07/26/18 15:30 Lymphocytes % 30.6 % (20.0-50.0) 07/26/18 15:30 Monocytes % 8.8 % (2.0-10.0) 07/26/18 15:30 Eosinophils % 1.9 % (0.0-5.0) 07/26/18 15:30 Basophils % 0.8 % (0.0-2.0) 07/26/18 15:30 PT 10.7 SECONDS (9.5-11.5) 07/26/18 15:30 INR 1.03 (0.5-1.4) 07/26/18 15:30 PTT (Actin FS) 23.9 SECONDS (26.0-38.0) L 07/26/18 15:30 D-Dimer 798 ng/mL (100-400) H 07/26/18 15:30 Sodium 136 mEq/L (136-145) 07/26/18 15:30 Potassium 3.6 mEq/L (3.5-5.1) 07/26/18 15:30 Chloride 102 mEq/L (98-107) 07/26/18 15:30 Carbon Dioxide 24.5 mEq/L (21.0-31.0) 07/26/18 15:30 Anion Gap 13.1 (7.0-16.0) 07/26/18 15:30 BUN 14 mg/dL (7-25) 07/26/18 15:30 Creatinine 0.7 mg/dL (0.7-1.3) 07/26/18 15:30 Est GFR ( Amer) > 60.0 ml/min (>90) 07/26/18 15:30 Est GFR (Non-Af Amer) > 60.0 ml/min 07/26/18 15:30 BUN/Creatinine Ratio 20.0 07/26/18 15:30 Glucose 129 mg/dL (70-105) H 07/26/18 15:30 Whole Bld Lactic Acid 0.92 mmol/L (0.60-1.99) 07/26/18 15:30 Calcium 9.8 mg/dL (8.6-10.3) 07/26/18 15:30 Total Bilirubin 1.5 mg/dL (0.3-1.0) H 07/26/18 15:30 AST 41 U/L (13-39) H 07/26/18 15:30 ALT 55 U/L (7-52) H 07/26/18 15:30 Alkaline Phosphatase 86 U/L (34-104) 07/26/18 15:30 Creatine Kinase 119 U/L (30-223) 07/26/18 15:30 Troponin I < 0.01 ng/mL (0.01-0.05) L 07/26/18 23:45 B-Natriuretic Peptide 11.7 pg/mL (5.0-100.0) 07/26/18 15:30 Total Protein 8.0 gm/dL (6.0-8.3) 07/26/18 15:30 Albumin 4.8 gm/dL (4.2-5.5) 07/26/18 15:30 Globulin 3.2 gm/dL 07/26/18 15:30 Albumin/Globulin Ratio 1.5 (1.0-1.8) 07/26/18 15:30 Triglycerides 175 mg/dL (<150) H 07/26/18 15:30 Cholesterol 229 mg/dL (<200) H 07/26/18 15:30 LDL Cholesterol Direct 163 mg/dL (75-193) 07/26/18 15:30 HDL Cholesterol 48 mg/dL (23-92) 07/26/18 15:30 Amylase 124 U/L (29-103) H 07/26/18 15:30 Lipase 34 U/L (11-82) 07/26/18 15:30 Urine Source CLEAN C 07/26/18 15:36 Urine Color YELLOW 07/26/18 15:36 Urine Clarity CLEAR (CLEAR) 07/26/18 15:36 Urine pH 7.0 (4.6 - 8.0) 07/26/18 15:36 Ur Specific [place] 1.010 (1.005-1.030) 07/26/18 15:36 Urine Protein NEGATIVE mg/dL (NEGATIVE) 07/26/18 15:36 Urine Glucose (UA) 100 mg/dL (NEGATIVE) H 07/26/18 15:36 Urine Ketones NEGATIVE mg/dL (NEGATIVE) 07/26/18 15:36 Urine Blood NEGATIVE (NEGATIVE) 07/26/18 15:36 Urine Nitrate NEGATIVE (NEGATIVE) 07/26/18 15:36 Urine Bilirubin NEGATIVE (NEGATIVE) 07/26/18 15:36 Urine Urobilinogen 0.2 E.U./dL (0.2 - 1.0) 07/26/18 15:36 Ur Leukocyte Esterase NEGATIVE (NEGATIVE) 07/26/18 15:36 Urine RBC 0-2 /hpf (0-5) H 07/26/18 15:36 Urine WBC 2-5 /hpf (0-5) 07/26/18 15:36 Ur Epithelial Cells MODERATE /lpf (FEW) 07/26/18 15:36 Urine Bacteria FEW /hpf (NONE SEEN) 07/26/18 15:36 - Physical Exam Vitals and I&O: Vital Signs Temp 97.4 F 07/27/18 11:56 Pulse 66 07/27/18 11:56 Resp 18 07/27/18 11:56 BP 121/68 07/27/18 11:56 Pulse Ox 95 07/27/18 11:56 Intake & Output 07/26/18 07/27/18 07/27/18 18:59 06:59 18:59 Intake Total 100 2100 1000 Output Total 450 Balance -350 2100 1000 Weight (lbs) 130 lb 132 lb Intake: Intake, IV Amount 2000 1000 D5-0.45NS 1,000 ml @ 80 1000 1000 mls/hr IV .[id number] [facility] Rx #:[id number] Sodium Chloride 0.9% 1, 1000 000 ml @ 100 mls/hr IV . Q10H ONE Rx#:[id number] Oral 100 100 Output: Urine 450 Other: # Voids 1 # Bowel Movements 0 Stool Characteristics Soft Soft Weight Source Estimated Bedscale Active Medications: Current Medications Acetaminophen (Tylenol) 650 mg PO Q4H PRN PRN Reason: Pain Or Fever above 101 Stop: 09/24/18 19:04 Albuterol Sulfate (Albuterol 2.5mg/3ml Neb Ud) 2.5 mg HHN Q2HRT PRN PRN Reason: Shortness of Breath or Wheeze Stop: 09/24/18 19:04 Aripiprazole (Abilify) 5 mg PO DAILY [facility]; Protocol Stop: 09/25/18 08:59 Last Admin: 07/27/18 09:21 Dose: 5 mg Aspirin (Ecotrin) 81 mg PO DAILY [facility] Stop: 09/25/18 08:59 Last Admin: 07/27/18 09:21 Dose: 81 mg Atenolol (Tenormin) 25 mg PO DAILY [facility] Stop: 09/25/18 08:59 Last Admin: 07/27/18 09:21 Dose: 25 mg Atorvastatin Calcium (Lipitor) 20 mg PO HS [facility]; Protocol Stop: 09/24/18 20:59 Last Admin: 07/26/18 21:09 Dose: 20 mg Bisacodyl (Dulcolax 5 Mg Ec Tab) 10 mg PO DAILY PRN PRN Reason: Constipation Stop: 09/24/18 19:01 Citalopram Hydrobromide (Celexa) 40 mg PO DAILY [facility]; Protocol Stop: 09/25/18 08:59 Last Admin: 07/27/18 09:21 Dose: 40 mg Guaifenesin (Robitussin) 200 mg PO Q4HR PRN PRN Reason: Cough or Congestion Stop: 09/24/18 19:04 Heparin Sodium (Porcine) (Heparin) 5,000 units SUBQ Q12HR [place] Stop: 09/24/18 20:59 Last Admin: 07/27/18 09:19 Dose: 5,000 units Dextrose/Sodium Chloride (D5-0.45ns) 1,000 mls @ 80 mls/hr IV .[id number] [facility] Stop: 09/24/18 19:14 Last Admin: 07/27/18 12:23 Dose: 80 mls/hr Ipratropium [place] (Atrovent Neb 0.5mg/2.5ml) 0.5 mg HHN Q2HRT PRN PRN Reason: Shortness of Breath or Wheeze Stop: 09/24/18 19:04 Lorazepam (Ativan) 1 mg PO Q6HR PRN; Protocol PRN Reason: Agitation Stop: 09/24/18 19:01 Last Admin: 07/27/18 01:18 Dose: 1 mg Miscellaneous (Citalopram Hydrobromide [Celexa*]) 20 mg PO DAILY [facility] Stop: 09/25/18 08:59 Miscellaneous (Lurasidone Hcl [Latuda]) 40 mg PO DAILY [facility] Stop: 09/25/18 08:59 Morphine Sulfate (Morphine) 2 mg IVP Q4HR PRN PRN Reason: Pain (Severe) LEVEL 7-10 Stop: 09/24/18 19:01 Morphine Sulfate (Morphine) 2 mg IVP Q4H PRN PRN Reason: Chest Pain Stop: 09/24/18 19:04 Nitroglycerin (Nitrostat) 0.4 mg SL Q5MIN PRN PRN Reason: Chest Pain Stop: 09/24/18 19:04 Ondansetron HCl (Zofran) 4 mg IV Q8H PRN PRN Reason: Nausea / Vomiting Stop: 09/24/18 19:04 Pantoprazole Sodium (Protonix) 40 mg IVP DAILY [facility] Stop: 09/25/18 08:59 Last Admin: 07/27/18 09:21 Dose: 40 mg Pneumococcal Polyvalent Vaccine (Pneumovax) 0.5 ml IM .ONCE ONE Stop: 07/27/18 10:01 - Procedures Procedures: Procedures Procedure Code Date OTHER GROUP THERAPY 94.44 06/28/14
--- NOTE | 2018-07-27 15:48 | History & Physical ---
ADMIT DATE: 07/27/2018 CHIEF COMPLAINT: Poor oral intake. HISTORY OF PRESENT ILLNESS: This is a 62-year-old male who is a board and care resident, admitted to the telemetry unit due to poor oral intake associated with complaints of epigastric pain and chest pain as well. Upon examination, the patient is awake, agitated. Denies any chest pain at this time. PAST MEDICAL HISTORY: Psychosis. FAMILY HISTORY: Noncontributory. SOCIAL HISTORY: The patient is a board and care resident. SURGICAL HISTORY: None. MEDICATIONS: Please see medication list. REVIEW OF SYSTEMS: GENERAL: Denies any fevers and chills. CARDIOVASCULAR: Denies chest pain. RESPIRATORY: Denies shortness of breath. GASTROINTESTINAL: Denies nausea, vomiting, abdominal pain. GENITOURINARY: Denies increased frequency or dysuria. NEUROLOGIC: No headaches, seizures or syncope. All systems are reviewed and negative. PHYSICAL EXAMINATION: GENERAL: The patient is well-developed, well-nourished, awake, confused, in no apparent distress. VITAL SIGNS: Temperature 97.4, heart rate 66, blood pressure 121/68, respiration 18, O2 95%. HEENT: Head; normocephalic, atraumatic. NECK: Supple. No mass. LUNGS: Clear bilaterally. HEART: Regular rhythm. ABDOMEN: Soft, nontender. SKIN: Excoriations noted. LABORATORY DATA: WBC 6.0, H and H 15.0 and 44.4, platelet of 228. Sodium 136, potassium 3.6, chloride 102, BUN 14, creatinine 0.7. Triglycerides 175, cholesterol 229. Amylase 129. DIAGNOSTICS: The patient had a CTA of the chest, abdomen and pelvis and impression is no evidence of PE, basilar atelectasis, fatty infiltration liver parenchyma. The patient also had a chest x-ray done, impression is no acute abnormalities. The patient also had a CT of the head, impression is no acute intracranial abnormality. ASSESSMENT: Atypical chest pain, poor oral intake, hypercholesterolemia, psychosis. PLAN: We will get a 2D echocardiogram. Low sodium diet. We will get Psychiatry on the case. Keep patient on IV fluids for hydration. PPIs, get followup labs for tomorrow morning. We will continue to follow this patient. JOB# [id number]
--- NOTE | 2018-07-27 19:25 | Consultation ---
DATE OF CONSULTATION: 07/27/2018 REQUESTING PHYSICIAN: Jean Mak DO REASON FOR CONSULTATION: Depression. HISTORY OF PRESENT ILLNESS: This patient is a 62-year-old male, resident of [facility]. Information obtained directly interviewing the patient as well as reviewing the admission papers and they are reliable. JUSTIFICATION OF HOSPITALIZATION: The patient has been admitted here for atypical chest pain and the patient is being currently worked up. A psychiatric consultation is called to address the issue of the patient's depression. Staff was spoken to. The patient is interviewed through a [place] Sor[place] speaking wood experimental mechanic. The patient is stating that he has been feeling depressed for the past 4 years and has been on Celexa and the Abilify at this time and has been able to cope with it. The patient's sleep and appetite prior to the hospitalization are reported to be fair. The patient is stating that he has been trying to cope with the social situation, but the patient is stating that he does not have anyone to open up and then talk to. The patient is reported to have been seeing a psychiatrist on an outpatient basis. The patient at this time is not presenting with any threats to harm self or others. PAST PSYCHIATRIC HISTORY: Please refer to the above. MEDICAL HISTORY: The patient is being worked up for acute chest pain. SUBSTANCE ABUSE HISTORY: The patient denies use of any drugs or alcohol. LEGAL PROBLEMS: None at this time. STRENGTHS AND ASSETS: The patient is motivated. MENTAL STATUS EXAMINATION: The patient is a 62-year-old, looking his stated age, cooperative. Eye contact is fair. Mood is noted to be anxious. Affect is constricted. The patient has insomnia. Appetite is noted to be fair. The patient denies any active hallucinations or delusions are noted. The patient is motivated for treatment. The patient is alert and oriented to time, place, person and situation. The patient is able to verbalize his concerns and is motivated to comply with the treatment. DIAGNOSTIC IMPRESSION: Major depressive disorder, recurrent and moderate. PLAN: To continue the patient with the Celexa and Abilify and follow the patient up with supportive therapy. Thank you, Dr. Mak for allowing me to participate in the care of the patient. JOB# [id number]
[2018-07-27] MEDS: Atorvastatin Calcium 10 MG TAB PO SCH (20:56)
[2018-07-28] MEDS: D5-0.45NS 1,000 ML IV SCH (02:54)
--- NOTE | 2018-07-28 13:21 | Internal Medicine Prog Note ---
Internal Medicine Subjective - Subjective Service Date: 07/28/18 ([id number] dc summary ) Internal Medicine Objective - Results Result Diagrams: 07/26/18 15:30 07/26/18 15:30 Recent Labs: Laboratory Last Values WBC 6.0 Th/cmm (4.8-10.8) 07/26/18 15:30 RBC 4.77 Mil/cmm (4.30-5.70) 07/26/18 15:30 Hgb 15.0 gm/dL (12-16) 07/26/18 15:30 Hct 44.4 % (41.0-60) 07/26/18 15:30 MCV 93.2 fl (80-99) 07/26/18 15:30 MCH 31.4 pg (26.0-30.0) H 07/26/18 15:30 MCHC Differential 33.7 pg (28.0-36.0) 07/26/18 15:30 RDW 13.0 % (11.5-20.0) 07/26/18 15:30 Plt Count 228 Th/cmm (150-400) 07/26/18 15:30 MPV 7.1 fl 07/26/18 15:30 Neutrophils % 57.9 % (40.0-80.0) 07/26/18 15:30 Lymphocytes % 30.6 % (20.0-50.0) 07/26/18 15:30 Monocytes % 8.8 % (2.0-10.0) 07/26/18 15:30 Eosinophils % 1.9 % (0.0-5.0) 07/26/18 15:30 Basophils % 0.8 % (0.0-2.0) 07/26/18 15:30 PT 10.7 SECONDS (9.5-11.5) 07/26/18 15:30 INR 1.03 (0.5-1.4) 07/26/18 15:30 PTT (Actin FS) 23.9 SECONDS (26.0-38.0) L 07/26/18 15:30 D-Dimer 798 ng/mL (100-400) H 07/26/18 15:30 Sodium 136 mEq/L (136-145) 07/26/18 15:30 Potassium 3.6 mEq/L (3.5-5.1) 07/26/18 15:30 Chloride 102 mEq/L (98-107) 07/26/18 15:30 Carbon Dioxide 24.5 mEq/L (21.0-31.0) 07/26/18 15:30 Anion Gap 13.1 (7.0-16.0) 07/26/18 15:30 BUN 14 mg/dL (7-25) 07/26/18 15:30 Creatinine 0.7 mg/dL (0.7-1.3) 07/26/18 15:30 Est GFR ( Amer) > 60.0 ml/min (>90) 07/26/18 15:30 Est GFR (Non-Af Amer) > 60.0 ml/min 07/26/18 15:30 BUN/Creatinine Ratio 20.0 07/26/18 15:30 Glucose 129 mg/dL (70-105) H 07/26/18 15:30 Whole Bld Lactic Acid 0.92 mmol/L (0.60-1.99) 07/26/18 15:30 Calcium 9.8 mg/dL (8.6-10.3) 07/26/18 15:30 Total Bilirubin 1.5 mg/dL (0.3-1.0) H 07/26/18 15:30 AST 41 U/L (13-39) H 07/26/18 15:30 ALT 55 U/L (7-52) H 07/26/18 15:30 Alkaline Phosphatase 86 U/L (34-104) 07/26/18 15:30 Creatine Kinase 119 U/L (30-223) 07/26/18 15:30 Troponin I < 0.01 ng/mL (0.01-0.05) L 07/26/18 23:45 B-Natriuretic Peptide 11.7 pg/mL (5.0-100.0) 07/26/18 15:30 Total Protein 8.0 gm/dL (6.0-8.3) 07/26/18 15:30 Albumin 4.8 gm/dL (4.2-5.5) 07/26/18 15:30 Globulin 3.2 gm/dL 07/26/18 15:30 Albumin/Globulin Ratio 1.5 (1.0-1.8) 07/26/18 15:30 Triglycerides 175 mg/dL (<150) H 07/26/18 15:30 Cholesterol 229 mg/dL (<200) H 07/26/18 15:30 LDL Cholesterol Direct 163 mg/dL (75-193) 07/26/18 15:30 HDL Cholesterol 48 mg/dL (23-92) 07/26/18 15:30 Amylase 124 U/L (29-103) H 07/26/18 15:30 Lipase 34 U/L (11-82) 07/26/18 15:30 Urine Source CLEAN C 07/26/18 15:36 Urine Color YELLOW 07/26/18 15:36 Urine Clarity CLEAR (CLEAR) 07/26/18 15:36 Urine pH 7.0 (4.6 - 8.0) 07/26/18 15:36 Ur Specific [place] 1.010 (1.005-1.030) 07/26/18 15:36 Urine Protein NEGATIVE mg/dL (NEGATIVE) 07/26/18 15:36 Urine Glucose (UA) 100 mg/dL (NEGATIVE) H 07/26/18 15:36 Urine Ketones NEGATIVE mg/dL (NEGATIVE) 07/26/18 15:36 Urine Blood NEGATIVE (NEGATIVE) 07/26/18 15:36 Urine Nitrate NEGATIVE (NEGATIVE) 07/26/18 15:36 Urine Bilirubin NEGATIVE (NEGATIVE) 07/26/18 15:36 Urine Urobilinogen 0.2 E.U./dL (0.2 - 1.0) 07/26/18 15:36 Ur Leukocyte Esterase NEGATIVE (NEGATIVE) 07/26/18 15:36 Urine RBC 0-2 /hpf (0-5) H 07/26/18 15:36 Urine WBC 2-5 /hpf (0-5) 07/26/18 15:36 Ur Epithelial Cells MODERATE /lpf (FEW) 07/26/18 15:36 Urine Bacteria FEW /hpf (NONE SEEN) 07/26/18 15:36 - Physical Exam Vitals and I&O: Vital Signs Temp 98.2 F 07/28/18 12:00 Pulse 64 07/28/18 12:00 Resp 18 07/28/18 12:00 BP 137/72 07/28/18 12:00 Pulse Ox 97 07/28/18 12:00 Intake & Output 07/27/18 07/28/18 07/28/18 18:59 06:59 18:59 Intake Total 1000 1240 Output Total 1200 Balance 1000 40 Weight (lbs) 147 lb 14.4 oz Intake: Intake, IV Amount 1000 1000 D5-0.45NS 1,000 ml @ 80 1000 1000 mls/hr IV .[id number] [facility] Rx #:[id number] Oral 240 Output: Urine 1200 Other: # Voids 1 # Bowel Movements 0 Stool Characteristics Soft Weight Source Bedscale Active Medications: Current Medications Acetaminophen (Tylenol) 650 mg PO Q4H PRN PRN Reason: Pain Or Fever above 101 Stop: 09/24/18 19:04 Albuterol Sulfate (Albuterol 2.5mg/3ml Neb Ud) 2.5 mg HHN Q2HRT PRN PRN Reason: Shortness of Breath or Wheeze Stop: 09/24/18 19:04 Aripiprazole (Abilify) 5 mg PO DAILY [facility]; Protocol Stop: 09/25/18 08:59 Last Admin: 07/28/18 08:12 Dose: 5 mg Aspirin (Ecotrin) 81 mg PO DAILY [facility] Stop: 09/25/18 08:59 Last Admin: 07/28/18 08:12 Dose: 81 mg Atenolol (Tenormin) 25 mg PO DAILY [facility] Stop: 09/25/18 08:59 Last Admin: 07/28/18 08:19 Dose: 25 mg Atorvastatin Calcium (Lipitor) 20 mg PO HS [facility]; Protocol Stop: 09/24/18 20:59 Last Admin: 07/27/18 20:56 Dose: 20 mg Bisacodyl (Dulcolax 5 Mg Ec Tab) 10 mg PO DAILY PRN PRN Reason: Constipation Stop: 09/24/18 19:01 Citalopram Hydrobromide (Celexa) 40 mg PO DAILY [facility]; Protocol Stop: 09/25/18 08:59 Last Admin: 07/28/18 08:11 Dose: 40 mg Guaifenesin (Robitussin) 200 mg PO Q4HR PRN PRN Reason: Cough or Congestion Stop: 09/24/18 19:04 Ipratropium [place] (Atrovent Neb 0.5mg/2.5ml) 0.5 mg HHN Q2HRT PRN PRN Reason: Shortness of Breath or Wheeze Stop: 09/24/18 19:04 Lorazepam (Ativan) 1 mg PO Q6HR PRN; Protocol PRN Reason: Agitation Stop: 09/24/18 19:01 Last Admin: 07/28/18 12:39 Dose: 1 mg Miscellaneous (Lurasidone Hcl [Latuda]) 40 mg PO DAILY [facility] Stop: 09/25/18 08:59 Morphine Sulfate (Morphine) 2 mg IVP Q4HR PRN PRN Reason: Pain (Severe) LEVEL 7-10 Stop: 09/24/18 19:01 Nitroglycerin (Nitrostat) 0.4 mg SL Q5MIN PRN PRN Reason: Chest Pain Stop: 09/24/18 19:04 Ondansetron HCl (Zofran) 4 mg IV Q8H PRN PRN Reason: Nausea / Vomiting Stop: 09/24/18 19:04 Pneumococcal Polyvalent Vaccine (Pneumovax) 0.5 ml IM .ONCE ONE Stop: 07/27/18 10:01 - Procedures Procedures: Procedures Procedure Code Date OTHER GROUP THERAPY 94.44 06/28/14 Nutritional Asmnt/Malnutr-PDOC - Dietary Evaluation Malnutrition Findings (Please click <Entered> for more info): Nutritional Asmnt/Malnutrition Start: 07/27/18 14: 52 Text: Status: Complete Freq: Protocol: Document 07/27/18 14:52 LYNDON (Rec: 07/27/18 15:33 LYNDON JONES) Nutritional Asmnt/Malnutrition Patient General Information Nutritional Screening High Risk Consult Diagnosis atypical chest pain Pertinent Medical Hx/Surgical Hx depression Subjective Information Received nutrition consult d/t poor PO intake for 1 month. Pt laying in bed at time of visit, AAOx4. Pt states appetite has not been good, he prefers soft foods and requested his meat/vegetables to be grounded. Nursing noted intake: 95% dinner yesterday and 25% breakfast today. Current Diet Order/ Nutrition Support low sodium (2 gm) Pertinent Medications lipitor, dulcolax, D5-0.45ns, heparin, zofran, protonix Pertinent Labs 07/26: glucose 129, triglycerides 175, cholesterol 229 Nutritional Hx/Data Height 5 ft 3 in Height (Calculated Centimeters) 160.0 Current Weight (lbs) 132 lb Weight (Calculated Kilograms) 59.9 Weight (Calculated Grams) 47037.2 [place] Body Weight 124 Body Mass Index (BMI) 23.3 Weight Status Approriate GI Symptoms GI Symptoms None Last BM none noted Difficult in: None Food Allergies No Skin Integrity/Comment: intact Estimated Nutritional Goals BEE in Kcals: Using Current wt Calories/Kcals/Kg 25-30 Kcals Calculated 7834-8360 Protein: Using Current wt Protein g/k.8-1 Protein Calculated 48-60 g Fluid: ml 9622-4726 (1 ml/kcal) Nutritional Problem 1. Problem Problem inadequate oral intake Etiology possible poor appetite Signs/Symptoms: decreased oral intake for 1 week per H&P Malnutrition Alert Is there a minimum of two criteria No selected? Query Text:Check all the applicable criteria. A minimum of two criteria are recommended for diagnosis of either severe or non-severe malnutrition. Malnutrition Related to Morbid Obesity Malnutrition related to morbid obesity No Intervention/Recommendation Comments 1. Downgrade diet texture to mech soft ground per pt's request and continue w/ low sodium 2 gm diet. 2. Monitor PO intake, wt, and labs 3. F/U as moderate risk in 3-5 days, 07/30-08/01, PO check 07/29 Expected Outcomes/Goals Expected Outcomes/Goals 1. PO intake to meet at least 75% of nutritional needs. 2. Wt stability, skin to remain intact, labs to approach WNL. Reviewed by Maryam Moran RD
--- NOTE | 2018-07-28 16:01 | Discharge Summary ---
DATE OF DISCHARGE: 07/28/2018 DICTATED FOR: Jean Mak D.O. CHIEF COMPLAINT: Poor oral intake. HISTORY OF PRESENT ILLNESS: A 62-year-old male who is a board and care resident, admitted to the telemetry unit due to poor oral intake, associated complaints of epigastric pain and chest pain as well. FINAL DIAGNOSES: Atypical chest pain, which has resolved; poor oral intake, which has resolved; hypercholesterolemia; and psychosis. HOSPITAL COURSE: During the hospital stay, the patient was admitted to the telemetry unit. The patient was kept on IV fluids for hydration. A 2D echocardiogram was also ordered. Psychiatrist was on the case as well. The patient's electrolytes were being monitored and they were within normal limits. The patient did not have any episodes of any poor oral intake during the hospital stay. For this reason, the patient is stable for discharge. CONDITION UPON DISCHARGE: Fair. DISPOSITION: Board and care. JOB# [id number]
--- NOTE | 2018-07-28 16:31 | Cardiology ---
07/28/[address] Jean Mak. M-MODE ECHOCARDIOGRAM: Mitral valve, anterior leaflet of mitral valve shows normal excursion, EF velocity. Posterior leaflet of the mitral valve shows normal excursion. Left ventricle posterior wall showed normal thickness, excursion. Interventricular septum showed normal thickness, excursion. Ejection fraction 56%. Left atrium normal. Aortic root shows normal dimension, normal excursion of aortic leaflets. CONCLUSION: Hypertrophy of the left ventricle, ejection fraction 56%. 2D ECHO: Long axis views show normal sized left ventricle with normal wall motion, mitral valve shows normal excursion. Left atrium normal. Aortic root shows normal dimension, normal excursion of aortic leaflets. Short axis view of mitral valve normal. Short axis view of aortic valve normal. Apical four chamber view showed normal sized left ventricle, left atrium, right ventricle, right atrium, tricuspid and mitral valve. CONCLUSION: Hypertrophy of the left ventricle, ejection fraction 56%. Doppler study shows trace mitral regurgitation, mild tricuspid regurgitation, right ventricular systolic pressure 29 mmHg. CONCLUSION: Hypertrophy of the left ventricle, ejection fraction 56%, trace mitral regurgitation, mild tricuspid regurgitation. JOB# [id number]
== END 2018-07-28 15:10 | disposition home or self-care (01) | DRG 203 ==
LOC: ER 14:38 → TELE 18:54
PROVIDERS: ADMIT Internal Medicine; ATTEND Internal Medicine
DX: R07.89 Other chest pain (principal); F33.1 Major depressive disorder, recurrent, moderate; F29 Unspecified psychosis not due to a substance or known physiological condition; E78.00 Pure hypercholesterolemia, unspecified; E78.5 Hyperlipidemia, unspecified; E86.0 Dehydration; R42 Dizziness and giddiness; R53.1 Weakness; Z82.49 Family history of ischemic heart disease and other diseases of the circulatory system
CPT/HCPCS: 36415-UA; 70450-TC; 71045-TC; 71275-TC; 80053-TC; 80061-TC; 81001-TC; 82150-TC; 82550-TC; 83605; 83690-TC; 83880-TC; 84484-TC; 85025-TC; 85379-TC; 85610-TC; 85730-TC; 93005; 94760; C9113; J1644; J7030; Q9967; Z7610

== ENCOUNTER 2018-08-03 10:52 | Emergency (ER) | payer MEDICAID ==
[2018-08-03 11:50] LABS: % BASOPHILS 0.7 % (0.0-2.0); % EOSINOPHILS 2.3 % (0.0-5.0); % LYMPHOCYTES 34.1 % (20.0-50.0); % MONOCYTES 8.5 % (2.0-10.0); % NEUTROPHILS 54.4 % (40.0-80.0); EOSINOPHILE ABSOLUTE 0.1 Th/cmm (0.1-0.4); HEMATOCRIT 45.1 % (41.0-60); HEMOGLOBIN 15.1 gm/dL (12-16); LYMPHOCYTE ABSOLUTE 1.9 Th/cmm (1.5-3.0); MEAN CELL VOLUME 94.2 fl (80-99); MEAN CORPUSCULAR HEMOGLOBIN 31.6 pg (26.0-30.0); MEAN CORPUSCULAR HGB CONC 33.6 pg (28.0-36.0); MEAN PLATELET VOLUME 7.1 fl; MONOCYTE ABSOLUTE 0.5 Th/cmm (0.3-1.0); NEUTROPHILE ABSOLUTE 3.2 Th/cmm (1.8-8.0); PLATELET COUNT 232 Th/cmm (150-400); RED BLOOD COUNT 4.79 Mil/cmm (4.30-5.70); RED CELL DISTRIBUTION WIDTH 12.7 % (11.5-20.0); WHITE BLOOD COUNT 5.7 Th/cmm (4.8-10.8)
[2018-08-03 12:08] LABS: ALB/GLOB RATIO 1.3 (1.0-1.8); ALBUMIN 4.6 gm/dL (4.2-5.5); ALKALINE PHOSPHATASE 84 U/L (34-104); ANION GAP 13.6 (7.0-16.0); BILIRUBIN,TOTAL 1.5 mg/dL (0.3-1.0); BUN - UREA NITROGEN 10 mg/dL (7-25); CALCIUM SERUM 9.4 mg/dL (8.6-10.3); CARBON DIOXIDE 24.1 mEq/L (21.0-31.0); CHLORIDE 102 mEq/L (98-107); CHOLESTEROL 211 mg/dL (<200); CREATININE - SERUM 0.8 mg/dL (0.7-1.3); GFR AFRICAN-AMERICAN > 60.0 ml/min (>90); GFR NON AFRICAN-AMERICAN > 60.0 ml/min; GLUCOSE 139 mg/dL (70-105); HDL -HIGH DENSITY LIPOPROTEIN 42 mg/dL (23-92); POTASSIUM SERUM 3.7 mEq/L (3.5-5.1); SGOT 47 U/L (13-39); SGPT/ALT 71 U/L (7-52); SODIUM SERUM 136 mEq/L (136-145); TOTAL PROTEIN,SERUM 8.1 gm/dL (6.0-8.3); TRIGLYCERIDES 142 mg/dL (<150)
[2018-08-03 12:09] LABS: URINE SOURCE MIDSTREAM
[2018-08-03 12:12] LABS: URINE BILIRUBIN NEGATIVE (NEGATIVE); URINE BLOOD NEGATIVE (NEGATIVE); URINE GLUCOSE (UA) NEGATIVE (NEGATIVE); URINE KETONE NEGATIVE (NEGATIVE); URINE LEUKOCYTE ESTERASE NEGATIVE (NEGATIVE); URINE NITRATE NEGATIVE (NEGATIVE); URINE PROTEIN NEGATIVE (NEGATIVE); URINE UROBILINOGEN 0.2 E.U./dL (0.2 - 1.0)
[2018-08-03 12:22] LABS: ACETAMINOPHEN < 10.0 ug/mL (10.0-30.0); SALICYLATES (ASPIRIN) < 25.0 mg/L (30.0-100.0)
[2018-08-03 12:26] LABS: INR 1.01 (0.5-1.4); PROTHROMBIN TIME (TEST) 10.5 SECONDS (9.5-11.5)
[2018-08-03 12:27] LABS: URINE CLARITY HAZY (CLEAR); URINE COLOR YELLOW; URINE MICROSCOPIC INDICATED? YES
--- NOTE | 2018-08-03 12:27 | ED Physician Chart ---
ED Chief Complaint/HPI - Patient Information Date Seen:: 08/03/18 Time Seen:: 11:40 Chief Complaint:: Malaise History of Present Illness:: onset x 2 days of malaise and dysuria; no report of trauma, LOC, ALOC, AMS, H/As , S/T, neck pain, C/P, SOB, cough, SIs, Abd. 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 Allergies:: Allergies Allergy/AdvReac Type Severity Reaction Status Date / Time No Known Allergies Allergy Verified 05/18/18 15:12 Vitals:: Vital Signs - 8 hr 08/03/18 11:38 Temp 98.7 F HR 69 RR 16 BP 142/118 O2 Sat % 98 Historian:: Patient, Family Member Review:: Nurse's Note Reviewed ED Review of Systems - Review of Systems General/Constitutional: No fever, No chills, No weight loss, No weakness, No diaphoresis, No edema, No loss of appetite Skin: No skin lesions, No rash, No bruising Head: No headache, No light-headedness Eyes: No loss of vision, No pain, No diplopia ENT: No earache, No nasal drainage, No sore throat, No tinnitus Neck: No neck pain, No swelling, No thyromegaly, No stiffness, No mass noted Cardio Vascular: No chest pain, No palpitations, No PND, No orthopnea, No edema Pulmonary: No SOB, No cough, No sputum, No wheezing GI: No nausea, No vomiting, No diarrhea, No pain, No melena, No hematochezia, No constipation, No hematemesis G/U: Dysuria, No frequency, No hematuria, No nacturia Musculoskeletal: No bone or joint pain, No back pain, No muscle pain Endocrine: No polyuria, No polydipsia Psychiatric: Prior psych history, Depression, No anxiety, No suicidal ideation, No homicidal ideation, No auditory hallucination, No visual hallucination Hematopoietic: No bruising, No lymphadenopathy Allergic/Immuno: No urticaria, No angioedema Neurological: No syncope, No focal symptoms, No weakness, No paresthesia, No headache, No seizure, No dizziness, No confusion, No vertigo ED Past Medical History - Past Medical History Obtainable: Yes Past Medical History: HTN, Arthritis Family History: HTN Social History: Non Smoker, No Alcohol, No Drug Use, Single, Care Facility Surgical History: None Psychiatricy History: Depression Medication: Reviewed Family Medical History - Family Member Sister History Unknown: Yes Ethnicity: Living Status: Hx Family Diabetes: Yes ED Physical Exam - Physical Examination General/Constitutional: Awake, Well-developed, well-nourished, Alert, No distress, GCS 15, Non-toxic appearing, Ambulatory Head: Atraumatic Eyes: Lids, conjuctiva normal, PERRL, EOMI Skin: Nl inspection, No rash, No skin lesions, No ecchymosis, Well hydrated, No lymphadenopathy ENMT: External ears, nose nl, TM canals nl, Nasal exam nl, Lips, teeth, gums nl , Oropharynx nl, Tonsils nl Neck: Nontender, Full ROM w/o pain, No JVD, No nuchal rigidity, No bruit, No mass, No stridor Other Neck comments:: supple; no meningeal signs; no cervical tenderness; no bruits Respiratory: Nl effort/Exclusion, Clear to Auscultation, No Wheeze/Rhonchi/Rales Cardio Vascular: RRR, No murmur, gallop, rubs, NL S1 S2, Carotid/Femoral/Distal pulses equal bilaterally GI: No tenderness/rebounding/guarding, No organomegaly, No hernia, Normal BS's, Nondistended, No mass/bruits, No McBurney tenderness, Rectum exam nl Other GI comments:: no pulsatile masses : No CVA tenderness Extremities: No tenderness or effusion, Full ROM, normal strength in all extremities, No edema, Normal digits & nails Neuro/Psych: Alert/oriented, DTR's symmetric, Normal sensory exam, Normal motor strength, Judgement/insight normal, Mood normal, Normal gait, No focal deficits Other Neuro/Psych comments:: MSE: WNL; no SIs; Mood/Affect: Stable Misc: Normal back, No paraspinal tenderness ED Labs/Radiology/EKG Results - Lab Results Results: Laboratory Tests 08/03/18 08/03/18 08/03/18 11:38 11:38 11:38 WBC 5.7 RBC 4.79 Hgb 15.1 Hct 45.1 MCV 94.2 MCH 31.6 H MCHC Differential 33.6 RDW 12.7 Plt Count 232 MPV 7.1 Neutrophils % 54.4 Lymphocytes % 34.1 Monocytes % 8.5 Eosinophils % 2.3 Basophils % 0.7 Sodium 136 Potassium 3.7 Chloride 102 Carbon Dioxide 24.1 Anion Gap 13.6 BUN 10 Creatinine 0.8 Est GFR ( Amer) > 60.0 Est GFR (Non-Af Amer) > 60.0 BUN/Creatinine Ratio 12.5 Glucose 139 H Whole Bld Lactic Acid Calcium 9.4 Total Bilirubin 1.5 H AST 47 H ALT 71 H Alkaline Phosphatase 84 Creatine Kinase Troponin I 0.01 Total Protein 8.1 Albumin 4.6 Globulin 3.5 Albumin/Globulin Ratio 1.3 Triglycerides 142 Cholesterol 211 H LDL Cholesterol Direct 149 HDL Cholesterol 42 Salicylates < 25.0 L Acetaminophen < 10.0 L Ethyl Alcohol < 10 08/03/18 08/03/18 11:38 11:38 WBC RBC Hgb Hct MCV MCH MCHC Differential RDW Plt Count MPV Neutrophils % Lymphocytes % Monocytes % Eosinophils % Basophils % Sodium Potassium Chloride Carbon Dioxide Anion Gap BUN Creatinine Est GFR ( Amer) Est GFR (Non-Af Amer) BUN/Creatinine Ratio Glucose Whole Bld Lactic Acid 1.38 Calcium Total Bilirubin AST ALT Alkaline Phosphatase Creatine Kinase 70 Troponin I Total Protein Albumin Globulin Albumin/Globulin Ratio Triglycerides Cholesterol LDL Cholesterol Direct HDL Cholesterol Salicylates Acetaminophen Ethyl Alcohol Comments:: Reviewed - Radiology Results Comments:: NAD - EKG Interpretations EKG Time:: 11:59 Rate & Rhythm: 63; NSR Comments:: non-specific st-t changes ED Septic Shock - . Is Septic Shock (SBP<90, OR Lactate>4 mmol\L) present?: No - <6hrs of presentation: Vital Signs: Vital Signs - 8 hr 08/03/18 11:38 Temp 98.7 F HR 69 RR 16 BP 142/118 O2 Sat % 98 ED Reassessment (Disposition) - Reassessment Reassessment:: pt tolerated po fluids well in ER; pt is asymptomatic upon discharge Reassessment Condition:: Improved - Diagnosis Diagnosis:: Dysuria; Malaise; Depression; Urethritis; UTI - Aftercare/Follow up Instructions Aftercare/Follow-Up Instructions:: Counseled pt regarding lab results/diagnosis & need follow up, Refer to Discharge Instructions, Counseled pt & family regarding lab results/diagnosis & need follow up Medication Prescribed:: Rx: Doxycycline 100mg po bid x 10 days; encourage fluids especially citric acid juices - Patient Disposition Discharge/Transfer:: Home Condition at Disposition:: Stable, Improved (X-Rays Instructions; RTER prn if existing s/s reoccur and/or get worse and/or any other new s/s occur; ACIs given for all above Dx; Refer to Group Product Manager/Urologist/Psychiatrist MATI; F/U with PMD in one day or prn; RTER prn if concerned)
[2018-08-03 12:28] LABS: URINE BACTERIA FEW /hpf (NONE SEEN); URINE EPITHELIAL CELLS NONE SEEN /lpf (FEW); URINE RBC NONE SEEN /hpf (0-5); URINE WBC 0-2 /hpf (0-5)
[2018-08-03 13:03] LABS: AMPHETAMINE URINE NEGATIVE (NEGATIVE); BARBITURATES URINE NEGATIVE (NEGATIVE); BENZODIAZEPINES QUAL URINE NEGATIVE (NEGATIVE); COCAINE METABOLITE QUAL URINE NEGATIVE (NEGATIVE); METHADONE URINE NEGATIVE (NEGATIVE); METHAMPHETAMINES QUAL URINE NEGATIVE (NEGATIVE); OPIATES (MORPHINE) QUAL. URINE NEGATIVE (NEGATIVE); PHENCYCLIDINE (PCP) URINE NEGATIVE (NEGATIVE); TRICYCLICS (TCA) QUAL. URINE NEGATIVE (NEGATIVE)
[2018-08-03 13:04] LABS: CANNABINOID THC NEGATIVE (NEGATIVE)
--- NOTE | 2018-08-03 13:05 | Diagnostic Imaging Report ---
CHEST X-RAY: AP view INDICATION: pain COMPARISON: 07/26/2018 FINDINGS: Left basal subsegmental atelectasis versus scarring is noted. There is no focal consolidation or pleural effusions The heart is normal in size. The osseous structures demonstrate no acute abnormalities. IMPRESSION: Left basal subsegmental atelectasis versus scarring. No focal consolidation identified.
[2018-08-03] MEDS ORDERED: cefTRIAXone 1 GM in Sodium Chloride 0.9% 50 ML IV ONE (13:26)
== END 2018-08-03 13:45 | disposition home or self-care (01) ==
LOC: ER 10:52
DX: N39.0 Urinary tract infection, site not specified (principal); F32.9 Major depressive disorder, single episode, unspecified; I10 Essential (primary) hypertension; M19.90 Unspecified osteoarthritis, unspecified site
CPT/HCPCS: 36415-UA; 71045-TC; 80053-TC; 80061-TC; 80307; 80320-TC; 80329-TC; 81001-TC; 82550-TC; 83605; 84443-TC; 84484-TC; 85025-TC; 85610-TC; 85730-TC; 93005

== ENCOUNTER 2018-08-10 14:36 | Emergency (ER) | payer MEDICAID ==
--- NOTE | 2018-08-10 15:49 | ED Physician Chart ---
ED Chief Complaint/HPI - Patient Information Date Seen:: 08/10/18 Time Seen:: 15:25 Chief Complaint:: rash face History of Present Illness:: 62 yr old male here with psychomotor retardation and seborrheic rash oily area of face and dandruff post hair pt was started on abs here recently for presumed uti Allergies:: Allergies Allergy/AdvReac Type Severity Reaction Status Date / Time No Known Allergies Allergy Verified 05/18/18 15:12 62 yr old male with hx schizo affective disorder on psych meds and part of [facility] here with case sealer for rash face for the last few days and worried about his confusion etc Vitals:: Vital Signs - 8 hr 08/10/18 14:49 Temp 98.3 F HR 72 RR 16 BP 149/87 O2 Sat % 98 ED Review of Systems - Review of Systems Psychiatric: Prior psych history Neurological: Confusion ED Past Medical History - Past Medical History Past Medical History: HTN, DM Family Medical History - Family Member Sister History Unknown: Yes Ethnicity: Living Status: Hx Family Diabetes: Yes ED Physical Exam - Physical Examination General/Constitutional: Awake Head: Atraumatic Eyes: Lids, conjuctiva normal Other Skin comments:: seborrheic dermatitis face and seborrhea scalp Neck: Nontender Respiratory: Nl effort/Exclusion Cardio Vascular: RRR GI: No tenderness/rebounding/guarding Extremities: No tenderness or effusion Misc: Normal back ED Assessment - Assessment General Assessment: rash seborrheic dermatitis face scalp suggest dermatolgy anti dandruff shampoo on face and hair decreased sugar intake and scrubs and some ldiluted vinegar ED Septic Shock - . Is Septic Shock (SBP<90, OR Lactate>4 mmol\L) present?: No - <6hrs of presentation: Vital Signs: Vital Signs - 8 hr 08/10/18 14:49 Temp 98.3 F HR 72 RR 16 BP 149/87 O2 Sat % 98 ED Reassessment (Disposition) - Reassessment Reassessment Condition:: Unchanged - Diagnosis Diagnosis:: seborrheic dermatitis face scalp - Aftercare/Follow up Instructions Aftercare/Follow-Up Instructions:: Counseled pt & family regarding lab results/ diagnosis & need follow up - Patient Disposition Discharge/Transfer:: Home Condition at Disposition:: Stable
== END 2018-08-10 15:50 | disposition home or self-care (01) ==
LOC: ER 14:36
DX: L21.9 Seborrheic dermatitis, unspecified (principal); I10 Essential (primary) hypertension; E11.9 Type 2 diabetes mellitus without complications; F25.9 Schizoaffective disorder, unspecified
CPT/HCPCS: Z7502